=== PATIENT | female | born 1970 | race Two or more races ===

== ENCOUNTER 2020-03-31 10:34 | Outpatient (REF) | payer BC, SELFPAY | END 2020-03-31 10:35 | disposition home or self-care (01) | LOC: HO.LAB 10:34 | PROVIDERS: Visit Provider Internal Medicine | DX: Z20.828 Contact with and (suspected) exposure to other viral communicable diseases (principal) | CPT/HCPCS: C9803; U0003 ==

== ENCOUNTER → 2020-05-18 11:34 | Outpatient (BNVA) | payer BC, SELFPAY | PROVIDERS: PCP Physician Assistant; Visit Provider Advanced Practice Midwife ==

== ENCOUNTER 2020-06-06 15:18 | Outpatient (REF) | payer BC, SELFPAY ==
--- NOTE | ~2020-06-06 | US_ITS ---
EXAMINATION: PELVIC ULTRASOUND CLINICAL INFORMATION: Bulky uterus COMPARISON: Previous pelvic ultrasound exam October 2018 TECHNIQUE: Transabdominal and transvaginal pelvic ultrasound was performed. Transvaginal exam was performed for better visualization of the uterus and ovaries. FINDINGS: The uterus is anteverted. The uterus is enlarged and measures 12 x 5 x 7 cm. Uterine echotexture is heterogeneous. There are 2 hypoechoic lesions questionable for fibroids measuring 3.5 x 3.2 x 3.8 cm in the left anterior uterine fundus and 1.4 x 1.3 x 1.4 cm in the posterior lower uterine segment. These do not appear appreciably changed from previous exam. The endometrium is heterogeneous-appearing and difficult to define. Endometrial thickness measures 1.2 cm. There are nabothian cysts in the cervix. The right ovary is normal-appearing and measures 2.2 x 1.6 x 2.5 cm. The left ovary is slightly enlarged and measures 4.3 x 2.1 x 3.4 cm. There are 2 adjacent complex cysts with daughter cysts measuring 2.7 x 1.6 x 1.7 cm and 2.2 x 1.5 x 1.6 cm. There is no fluid in the pelvis. US/US pelvic complete IMPRESSION: Enlarged heterogeneous appearing uterus. The endometrium is heterogeneous and difficult to define. 2 focal uterine lesions, largest measuring 3 x 4 cm. Fibroids and possible adenomyosis should be considered. Slightly enlarged left ovary containing 2 complex cysts.
--- NOTE | ~2020-06-06 | US_ITS ---
EXAMINATION: PELVIC ULTRASOUND CLINICAL INFORMATION: Bulky uterus COMPARISON: Previous pelvic ultrasound exam October 2018 TECHNIQUE: Transabdominal and transvaginal pelvic ultrasound was performed. Transvaginal exam was performed for better visualization of the uterus and ovaries. FINDINGS: The uterus is anteverted. The uterus is enlarged and measures 12 x 5 x 7 cm. Uterine echotexture is heterogeneous. There are 2 hypoechoic lesions questionable for fibroids measuring 3.5 x 3.2 x 3.8 cm in the left anterior uterine fundus and 1.4 x 1.3 x 1.4 cm in the posterior lower uterine segment. These do not appear appreciably changed from previous exam. The endometrium is heterogeneous-appearing and difficult to define. Endometrial thickness measures 1.2 cm. There are nabothian cysts in the cervix. The right ovary is normal-appearing and measures 2.2 x 1.6 x 2.5 cm. The left ovary is slightly enlarged and measures 4.3 x 2.1 x 3.4 cm. There are 2 adjacent complex cysts with daughter cysts measuring 2.7 x 1.6 x 1.7 cm and 2.2 x 1.5 x 1.6 cm. There is no fluid in the pelvis. US/US transvaginal IMPRESSION: Enlarged heterogeneous appearing uterus. The endometrium is heterogeneous and difficult to define. 2 focal uterine lesions, largest measuring 3 x 4 cm. Fibroids and possible adenomyosis should be considered. Slightly enlarged left ovary containing 2 complex cysts.
== END 2020-06-06 15:19 | disposition home or self-care (01) ==
LOC: HO.US 15:18
PROVIDERS: PCP Physician Assistant; Visit Provider Advanced Practice Midwife
DX: N85.2 Hypertrophy of uterus (principal); N95.1 Menopausal and female climacteric states
CPT/HCPCS: 76830; 76856

== ENCOUNTER 2020-07-30 10:46 | Outpatient (REF) | payer BC, SELFPAY ==
--- NOTE | ~2020-07-30 | US_ITS ---
EXAMINATION: US PELVIS COMPLETE US PELVIS TRANSVAGINAL CLINICAL INFORMATION: Ovarian cyst. LMP 07/21/2020. COMPARISON: Multiple priors, most recent pelvic ultrasound dated 06/06/2020. TECHNIQUE: Transabdominal and transvaginal imaging was performed. FINDINGS: The uterus measures 9.8 x 4.6 x 7.1 cm for a volume of 167.4 mL. There are multiple uterine fibroids measuring up to 3.2 cm within the right fundus (previously 3.8 cm), 1.9 cm within the fundus (previously not seen), 1.5 cm within the posterior fundus (previously not seen), and 1.5 cm within the posterior uterine body (see previously 1.4 cm). A regular homogeneous endometrium is identified measuring 0.6 cm. There is trace fluid within the endometrial cavity and cervix. There are nabothian cysts. Both ovaries are of normal size and echogenicity. The right measures 2.6 x 1.7 x 1.7 cm for a volume of 3.9 mL. The left measures 3.6 x 1.7 x 2.6 cm for a volume of 8.5 mL. In the region of the previously seen complex left ovarian cyst, there is now a simple cyst versus dominant follicle measuring 1.6 cm. No new ovarian parenchymal lesion. There is no pelvic free fluid. US/US pelvic complete IMPRESSION: 1. Fibroid uterus. 2. Previously seen complex left adnexal cysts are no longer identified. There is currently a left adnexal dominant follicle versus simple cyst measuring 1.6 cm. No routine follow-up imaging recommended. 3. Unremarkable right ovary.
--- NOTE | ~2020-07-30 | US_ITS ---
EXAMINATION: US PELVIS COMPLETE US PELVIS TRANSVAGINAL CLINICAL INFORMATION: Ovarian cyst. LMP 07/21/2020. COMPARISON: Multiple priors, most recent pelvic ultrasound dated 06/06/2020. TECHNIQUE: Transabdominal and transvaginal imaging was performed. FINDINGS: The uterus measures 9.8 x 4.6 x 7.1 cm for a volume of 167.4 mL. There are multiple uterine fibroids measuring up to 3.2 cm within the right fundus (previously 3.8 cm), 1.9 cm within the fundus (previously not seen), 1.5 cm within the posterior fundus (previously not seen), and 1.5 cm within the posterior uterine body (see previously 1.4 cm). A regular homogeneous endometrium is identified measuring 0.6 cm. There is trace fluid within the endometrial cavity and cervix. There are nabothian cysts. Both ovaries are of normal size and echogenicity. The right measures 2.6 x 1.7 x 1.7 cm for a volume of 3.9 mL. The left measures 3.6 x 1.7 x 2.6 cm for a volume of 8.5 mL. In the region of the previously seen complex left ovarian cyst, there is now a simple cyst versus dominant follicle measuring 1.6 cm. No new ovarian parenchymal lesion. There is no pelvic free fluid. US/US transvaginal IMPRESSION: 1. Fibroid uterus. 2. Previously seen complex left adnexal cysts are no longer identified. There is currently a left adnexal dominant follicle versus simple cyst measuring 1.6 cm. No routine follow-up imaging recommended. 3. Unremarkable right ovary.
== END 2020-07-30 10:47 | disposition home or self-care (01) ==
LOC: HO.US 10:46
PROVIDERS: Visit Provider Obstetrics & Gynecology
DX: N83.292 Other ovarian cyst, left side (principal)
CPT/HCPCS: 76830; 76856

== ENCOUNTER → 2020-08-07 11:19 | Outpatient (BNVA) | payer BC, SELFPAY | PROVIDERS: PCP Physician Assistant; Visit Provider Obstetrics & Gynecology ==

== ENCOUNTER 2020-08-14 12:54 | Outpatient (REF) | payer BC, SELFPAY ==
--- NOTE | ~2020-08-14 | MM_ITS ---
EXAMINATION: MM DIAGNOSTIC DIGITAL BREAST TOMOSYNTHESIS, BILATERAL US DIAGNOSTIC ULTRASOUND BREAST, RIGHT CLINICAL INFORMATION: Recent palpable nodule medial right breast, doesn't feel today. No pain or discharge. No known family history breast cancer. The lifetime risk of breast cancer based on the Tyrer-Cuzick Model is 7%. COMPARISON: Mammography: 07/14/2018, 02/25/2017 TECHNIQUE: Digital breast tomosynthesis is performed in both the craniocaudal and mediolateral oblique views along with computer-aided detection (CAD). Synthesized 2D images are generated from the tomosynthesis. Additional exaggerated right CC view is obtained. Ultrasound right breast is targeted to the medial and lower quadrant. Grayscale imaging and color Doppler are performed without and with harmonics. FINDINGS: The breasts are heterogeneously dense, which may obscure small masses (ACR BI-RADS breast composition Category c). Parenchymal pattern is similar to prior studies. There is no interval mass or architectural abnormality or developing density. There is no skin thickening or coarsening of the Abdiel's ligaments. The axilla are unremarkable. No abnormal calcifications. No significant changes. Ultrasound demonstrates an oval cyst 5:00 position 3 cm from nipple measuring 0.6 x 0.3 cm with long axis parallel to the skin. There are some fine internal avascular septation. No associated color flow. There is increased through-transmission of sound. There is no solid mass or architectural abnormality or focal duct ectasia. Patient does not palpate the finding today. It is uncertain if the cyst is correlate for recent symptoms. Results are discussed with the patient at time of visit. Patient does not palpate abnormality today. If finding is recurrent, repeat targeted imaging may be considered. MM/MM tomosynthesis diagnostic BI IMPRESSION: 1. No mammographic evidence of malignancy or significant change from prior studies. 2. Benign complicated cyst 5:00 position 0.6 x 0.3 cm. ASSESSMENT: BI-RADS 2: Benign RECOMMENDATION: Routine annual mammography screening. This patient's information was entered into a reminder system with a target due date for their next mammogram.
== END 2020-08-14 12:55 | disposition home or self-care (01) ==
LOC: HO.MAMMO 12:54
PROVIDERS: PCP Physician Assistant; Visit Provider Physician Assistant
DX: N63.14 Unspecified lump in the right breast, lower inner quadrant (principal)
CPT/HCPCS: 76642; 77062; 77066

== ENCOUNTER 2021-03-22 07:21 | Outpatient (REF) | payer BC, SELFPAY ==
[2021-03-22 08:09] LABS: Hematocrit 35.1 % (37.0-47.0); Hemoglobin 11.7 g/dl (12.0-16.0); Mean Corpuscular HGB Conc 33.3 g/dl (31.0-35.0); Mean Corpuscular Hemoglobin 30.8 pg (27.0-33.0); Mean Corpuscular Volume 92.4 fL (80.0-98.0); Mean Platelet Volume 10.7 fL (9.4-12.3); Platelet Count 242 X10*3/uL (160-400); White Blood Count 3.4 X10*3/uL (4.8-10.8)
[2021-03-22 08:20] LABS: Estimated Average Glucose 88 mg/dL; Hemoglobin A1c % 4.7 %
[2021-03-22 08:36] LABS: Alanine Aminotransferase 10 U/L (0-31); Alkaline Phosphatase 68 U/L (39-117); Anion Gap 10 (12-20); Aspartate Amino Transferase 16 U/L (5-31); Blood Urea Nitrogen 8 mg/dL (9-16); Calcium 8.9 mg/dL (8.4-10.2); Carbon Dioxide 26 mmol/L (22-29); Chloride 107 mmol/L (96-108); Cholesterol 182 mg/dL; Estimated Glomerular Filt Rate > 60; Glucose Fasting 94 mg/dL (60-99); HDL Cholesterol 79 mg/dL; LDL Cholesterol Calculated 96 mg/dl; Potassium 4.2 mmol/L (3.3-5.1); Sodium 139 mmol/L (135-145); Total Protein 6.7 g/dL (6.5-8.0); Triglycerides 35 mg/dL
== END 2021-03-22 07:22 | disposition home or self-care (01) ==
LOC: HO.LAB 07:21
PROVIDERS: PCP Physician Assistant; Visit Provider Physician Assistant
DX: Z13.29 Encounter for screening for other suspected endocrine disorder (principal); Z13.220 Encounter for screening for lipoid disorders; I10 Essential (primary) hypertension
CPT/HCPCS: 36415; 80053; 80061; 83036; 84443; 85027

== ENCOUNTER 2021-05-21 12:59 | Outpatient (REF) | payer BC, SELFPAY ==
[2021-05-24 03:36] LABS: HPV mRNA E6/E7 rflx Not Detected (Not Detected)
== END 2021-05-21 13:00 | disposition home or self-care (01) ==
LOC: HO.LAB 12:59
PROVIDERS: Visit Provider Obstetrics & Gynecology
DX: Z01.419 Encounter for gynecological examination (general) (routine) without abnormal findings (principal)
CPT/HCPCS: 87624; 88142

== ENCOUNTER 2021-06-11 14:17 | Outpatient (REF) | payer BC, SELFPAY ==
--- NOTE | ~2021-06-11 | US_ITS ---
EXAMINATION: US PELVIS CLINICAL INFORMATION: Hypertrophy of the uterus. COMPARISON: Ultrasound pelvis 08/09/2020 TECHNIQUE: Ultrasound of the pelvis is performed using both transabdominal and transvaginal transducers along with Doppler. Transvaginal imaging is performed due to inadequate visualization transabdominally. FINDINGS: Uterus: The uterus is anteverted, anteflexed measuring 9.6 cm in length, 4.8 cm in AP and 7.8 cm in transverse dimension. The double wall endometrial thickness is 0.9 cm. The uterus is smooth in contour and has normal myometrial echogenicity. There are two hypoechoic lesions. 1. A small hypoechoic lesion in the left body of uterus measuring 1.3 x 1.3 x 1.2 cm. Previously it measured 1.5 x 1.3 x 1.3 cm. 2. Lesion in the right fundus measures 3.0 x 3.6 x 3.5 cm. Previously it measured 2.6 x 2.6 x 3.2 cm. There is a small nabothian cysts seen. Adnexa: Both ovaries are visualized. There is normal color flow to the adnexa. There is no ovarian torsion. There is no pelvic ascites or fluid collection. Right ovary measures 3.1 x 1.8 x 2.1 cm and volume 6.1 mL. There is are anechoic cysts measuring 1.3 x 1.0 x 1.1 cm and 1.6 1.1 x 0.9 cm. Previously right ovary measured 2.6 x 1.7 x 1.7 cm. Left ovary measures 2.7 x 2.0 x 2.4 cm and volume 6.8 mL. There is a small dominant follicle measuring 1.9 x 1.5 x 1.6 cm. Previously left ovary measured 3.6 x 1.7 x 2.6 cm. There is no free fluid in the cul-de-sac. US/US pelvic and transvaginal IMPRESSION: 1. There are two uterine fibroids visualized which were seen on the previous exam 08/09/2020. The other two fibroids seen on previous exam are not visualized on the present exam. 2. Small nabothian cysts in the cervix. 3. Bilateral ovarian cysts.
== END 2021-06-11 14:18 | disposition home or self-care (01) ==
LOC: HO.US 14:17
PROVIDERS: Visit Provider Obstetrics & Gynecology
DX: N85.2 Hypertrophy of uterus (principal)
CPT/HCPCS: 76830; 76856

== ENCOUNTER → 2021-06-25 12:45 | Outpatient (BNVA) | payer BC, SELFPAY | PROVIDERS: Visit Provider Obstetrics & Gynecology ==

== ENCOUNTER 2021-07-16 12:53 | Outpatient (REF) | payer BC, SELFPAY | END 2021-07-16 12:54 | disposition home or self-care (01) | LOC: HO.LAB 12:53 | PROVIDERS: Visit Provider Obstetrics & Gynecology | DX: N93.9 Abnormal uterine and vaginal bleeding, unspecified (principal) | CPT/HCPCS: 58100; 88305 ==

== ENCOUNTER → 2021-07-29 14:17 | Outpatient (BNVA) | payer BC, SELFPAY | PROVIDERS: Visit Provider Obstetrics & Gynecology | DX: Z13.89 Encounter for screening for other disorder (principal) ==

== ENCOUNTER 2021-08-16 09:19 | Outpatient (REF) | payer BC, SELFPAY ==
--- NOTE | ~2021-08-16 | MM_ITS ---
EXAMINATION: MM SCREENING DIGITAL BREAST TOMOSYNTHESIS, BILATERAL CLINICAL INFORMATION: Screening. Asymptomatic. The lifetime risk of breast cancer based on the Tyrer-Cuzick Model is 9%. COMPARISON: Mammography: 08/14/2020, 07/14/2018, 02/25/2017; targeted right breast ultrasound 08/14/2020. TECHNIQUE: Digital breast tomosynthesis is performed in both the craniocaudal and mediolateral oblique views along with computer-aided detection (CAD). Synthesized 2D images are generated from the tomosynthesis. FINDINGS: The breasts are heterogeneously dense, which may obscure small masses (ACR BI-RADS breast composition Category c). There are no significant masses, abnormal calcifications, or other abnormalities. Parenchymal pattern is similar to prior studies. No developing density or architectural abnormality. MM/MM tomosynthesis screening BI IMPRESSION: No mammographic evidence of malignancy. ASSESSMENT: BI-RADS 1: Negative RECOMMENDATION: Routine annual mammography screening. This patient's information was entered into a reminder system with a target due date for their next mammogram.
== END 2021-08-16 09:20 | disposition home or self-care (01) ==
LOC: HO.MAMMO 09:19
PROVIDERS: Visit Provider Physician Assistant
DX: Z12.31 Encounter for screening mammogram for malignant neoplasm of breast (principal)
CPT/HCPCS: 77063; 77067

== ENCOUNTER → 2021-08-19 14:59 | Outpatient (BNVA) | payer BC, SELFPAY | PROVIDERS: Visit Provider Obstetrics & Gynecology | DX: Z13.89 Encounter for screening for other disorder (principal) ==

== ENCOUNTER 2021-08-23 06:31 | Day surgery (SDC) | payer BC, SELFPAY ==
[2021-08-19 10:32] VITALS: BMI 24.1
--- NOTE | 2021-08-22 08:59 | P.CONAN_ITS ---
Documented by User: Julia Rondon NP 08/22/21 09:00 HPI - Anesthesia Eval Consult details Narrative: 51yo F for D&C Hysteroscopy,possible polypectomy/myomectomy PMFSH Active Problems Active Problems: All Active Problems (Updated 07/16/21 @ 13:31 by aNbeel Gomez MD) Abnormal uterine bleeding (AUB) (Acute) Myoma (Acute) Well woman exam (Acute) Anemia (Acute) Annual physical exam (Acute) BIRGIT (generalized anxiety disorder) (Acute) MDD (major depressive disorder), recurrent episode, moderate (Acute) Screening for hypothyroidism (Acute) Screening for hypercholesterolemia (Acute) Screening for diabetes mellitus (DM) (Acute) Breast mass, right (Acute) Screening breast examination (Acute) Perimenopause (Acute) Bulky or enlarged uterus (Acute) Well woman exam with routine gynecological exam (Acute) Past Medical History Medical History Anxiety Depressed Excessive bleeding in the premenopausal period Family History Family History Father Hypertension Mother Hypertension Surgical History Surgical History History of endometrial ablation Hx of tubal ligation Social History Social History Housing: House Alcohol intake: never Patient Tobacco Use Status: Never used Tobacco Tobacco use type: Cigarette e-Cigarette/Vaping Use: Never Used Second Hand Smoke Exposure: No Use of substances other than those prescribed or required for medical reasons: No Are you DNR?: No Advance Directives: No Advance Directives Information Provided: Yes Current occupational status: unemployed Gender identity: Female Meds Allergies Allergy/AdvReac Type Severity Reaction Status Date / Time No Known Allergies Allergy Verified 08/23/21 06:46 [No Known Allergies*] Home Medications Medication Instructions Recorded Confirmed Last Taken Type cholecalciferol (vitamin D3) 25 25 mcg PO DAILY 05/18/20 07/02/21 Unknown History mcg (1,000 unit) capsule Exam Exam Date and Time: August 22, 2021 0859 Height,Weight and Vital Signs: Height 5 ft 5 in Weight 65.771 kg Pertinent Lab Results Pertinent Lab Results: Laboratory Tests 03/22/21 03/22/21 07:30 07:30 WBC 3.4 L Hgb 11.7 L Hct 35.1 L Plt Count 242 Sodium 139 Potassium 4.2 Chloride 107 Carbon Dioxide 26 BUN 8 L Creatinine 0.67 Assessment and Plan Assessment Anesthesia Assessment: Chart Reviewed Documented by User: Domo Simms MD 08/23/21 07:27 [facility] Past Medical History Medical History Anxiety Depressed Excessive bleeding in the premenopausal period Family History Family History Father Hypertension Mother Hypertension Family history of problems with anesthesia: No Surgical History Surgical History History of endometrial ablation Hx of tubal ligation History of Problems with Anesthesia: No Social History Social History Housing: House Alcohol intake: never Patient Tobacco Use Status: Never used Tobacco Tobacco use type: Cigarette e-Cigarette/Vaping Use: Never Used Second Hand Smoke Exposure: No Use of substances other than those prescribed or required for medical reasons: No Are you DNR?: No Advance Directives: No Advance Directives Information Provided: Yes Current occupational status: unemployed Gender identity: Female Meds Allergies Allergy/AdvReac Type Severity Reaction Status Date / Time No Known Allergies Allergy Verified 08/23/21 06:46 [No Known Allergies*] Home Medications Medication Instructions Recorded Confirmed Last Taken Type cholecalciferol (vitamin D3) 25 25 mcg PO DAILY 05/18/20 07/02/21 Unknown History mcg (1,000 unit) capsule Exam Airway Mallampati Class: I TM Dist: >3cm Neck ROM: Full Assessment and Plan Assessment Anesthesia Assessment: Anesthesia Plan Discussed Final Anesthetic Review Family History of Problems with Anesthesia: No History of Problems with Anesthesia: No NPO: Yes ASA Class: II Final Preanesthetic Review: No Changes in Pt Med Stat, Meds/Allgs Chart Reviewed, Consent Obtained/Reviewed and Anes Risks/Benef Reviewed Procedure Risk: Low Anesthetic Plan Anesthetic Plan: GA Disposition: Standard PACU
[2021-08-23] VITALS (7 sets, daily range): BP systolic 110–134; BP diastolic 60–76; PULSE 55–69; RESP 14–16; TEMP 36.3–36.8; O2SAT 97–100; BMI 24.1
[2021-08-23 06:52] LABS: UPreg QC Valid YES; Urine Pregnancy NEGATIVE (NEGATIVE)
--- NOTE | 2021-08-23 07:37 | MHC.SHP ---
Pre-Procedural Eval Section A Date of Service: 08/23/21 Section B Chief Complaint: abnormal bleeding Allergies: Allergies Allergy/AdvReac Type Severity Reaction Status Date / Time No Known Allergies Allergy Verified 08/23/21 06:46 [No Known Allergies*] Plan I have reviewed the history and physical and performed a pertinent physical examination on my patient. No changes have occurred unless specified.
[2021-08-23] MEDS: Lactated Ringers 1,000 ML 100 ML IVCONT (07:55)
--- NOTE | 2021-08-23 08:55 | P.BOP_ITS ---
Brief Operative Note Date of Service: 08/23/21 Pre-op diagnosis: Abnormal uterine bleeding Post-op diagnosis: same (Normal endometrial cavity) Procedure: Hysteroscopy D&C, Polypectomy Surgeon: Nabeel Gomez MD Anesthesia: MAC Was an Peer Support Specialist used for this Procedure?: No Estimated blood loss (mL): 0 Pathology: other (Endometrial Scrapping. ) Condition: stable Disposition: PACU
--- NOTE | 2021-08-23 08:56 | P.OP_ITS ---
Operative Note Operative Note Date of Service: 08/23/21 Narrative: Preop Diagnosis: Abnormal uterine bleeding Operation: Diagnostic Hysteroscopy, Dilataion & Curettage Post Op Diagnosis: Normal endometrial cavity QBL: Minimal Anesthesia: MAC Surgeon: Nabeel Gomez MD Environmental Science Program Director: None Complication: None Pathology: Endometrial Scrapings Procedure: The patient was put in the dorsal lithotomy position, scrubbed, and draped in the usual manner. A sterile speculum was inserted in the patient's vagina. The anterior lip of the cervix was grasped with a single tooth tenaculum. The cervix was dilated up to 5 mm, then the scope was inserted in the patient's uterus. Inspection revealed Normal endometrial cavity. The Myosure Reach device was used; sharp settings was carried on, moderate amount of tissues retrieved. At the end of the procedure, all instruments were taken out of the patient uterine and vaginal cavity. The single tooth tenaculum was removed and homeostasis was assured using pressure,. The patient tolerated the procedure well and was transferred to the PACU in a stable condition.
[2021-08-23] MEDS: oxyCODONE HCl Immed Release 5 MG TABLET PO (09:40)
[2021-08-23] MEDS: Acetaminophen 325 MG TABLET 650 MG PO (09:40)
== END 2021-08-23 10:13 | disposition home or self-care (01) ==
PROVIDERS: Visit Provider Obstetrics & Gynecology
PROC: 0UDB8ZZ Extraction of Endometrium, Via Natural or Artificial Opening Endoscopic (ICD-10-PCS; CPT 58558; principal; 2021-08-23 08:30)
DX: N93.9 Abnormal uterine and vaginal bleeding, unspecified (principal); F41.8 Other specified anxiety disorders; Z98.51 Tubal ligation status; Z79.899 Other long term (current) drug therapy
CPT/HCPCS: 58558; 81025; 88305; J1100; J2250; J2405; J3010

== ENCOUNTER → 2021-09-05 15:20 | Outpatient (BNVA) | payer BC, SELFPAY | PROVIDERS: Visit Provider Obstetrics & Gynecology | DX: N93.9 Abnormal uterine and vaginal bleeding, unspecified (principal) ==

== ENCOUNTER 2021-11-07 07:31 | Outpatient (REF) | payer OTHER, SELFPAY ==
[2021-11-07 08:26] LABS: Hematocrit 35.9 % (37.0-47.0); Hemoglobin 11.5 g/dl (12.0-16.0); Mean Corpuscular Hemoglobin 27.8 pg (27.0-33.0); Mean Corpuscular Volume 86.7 fL (80.0-98.0); Mean Platelet Volume 10.1 fL (9.4-12.3); Platelet Count 280 X10*3/uL (160-400); Red Blood Count 4.14 X10*6/uL (4.20-5.50); Red Cell Distribution Width 16.2 % (11.0-16.0); White Blood Count 3.5 X10*3/uL (4.8-10.8)
[2021-11-07 08:59] LABS: Alanine Aminotransferase 20 U/L (0-31); Albumin Level 4.2 g/dL (3.5-5.0); Alkaline Phosphatase 80 U/L (39-117); Anion Gap 12 (12-20); Aspartate Amino Transferase 24 U/L (5-31); Bilirubin Total 1.3 mg/dL (0.0-1.0); Blood Urea Nitrogen 12 mg/dL (9-16); Calcium 9.4 mg/dL (8.4-10.2); Carbon Dioxide 26 mmol/L (22-29); Chloride 105 mmol/L (96-108); Estimated Glomerular Filt Rate > 60; Glucose Random 84 mg/dL (60-115); Potassium 4.8 mmol/L (3.3-5.1); Sodium 138 mmol/L (135-145)
[2021-11-07 09:06] LABS: TSH reflex Free T4 0.81 uIU/mL (0.32-4.0); Vitamin D 25-OH Total 15.7 ng/mL (>30)
[2021-11-07 09:18] LABS: Folate 15.8 ng/mL (> or = 4.0); Vitamin B12 388 pg/mL (200-900)
== END 2021-11-07 07:32 | disposition home or self-care (01) ==
LOC: HO.LAB 07:31
PROVIDERS: PCP Physician Assistant; Visit Provider Nurse Practitioner Family
DX: R42 Dizziness and giddiness (principal); D50.0 Iron deficiency anemia secondary to blood loss (chronic)
CPT/HCPCS: 36415; 80053; 82306; 82607; 82746; 84443; 85027

== ENCOUNTER 2021-11-22 07:43 | Outpatient (REF) | payer OTHER, SELFPAY ==
[2021-11-22 08:53] LABS: Iron 59 mcg/dL (30-160); Percent Iron Saturation 15 % (15-50); Total Iron Binding Capacity 391 mcg/dL (228-428); Unsaturated Iron Binding 332 ug/dL
== END 2021-11-22 07:44 | disposition home or self-care (01) ==
LOC: HO.LAB 07:43
PROVIDERS: PCP Physician Assistant; Visit Provider Nurse Practitioner Family
DX: D50.0 Iron deficiency anemia secondary to blood loss (chronic) (principal)
CPT/HCPCS: 36415; 83540

== ENCOUNTER 2022-08-22 08:17 | Outpatient (REF) | payer OTHER, SELFPAY ==
--- NOTE | ~2022-08-22 | MM_ITS ---
EXAMINATION: MM SCREENING DIGITAL BREAST TOMOSYNTHESIS, BILATERAL CLINICAL INFORMATION: Screening. Asymptomatic. The lifetime risk of breast cancer based on the Tyrer-Cuzick Model is 9%. COMPARISON: Mammography: 08/16/2021, 08/14/2020, 07/14/2018; right ultrasound 08/14/2020. TECHNIQUE: Digital breast tomosynthesis is performed in both the craniocaudal and mediolateral oblique views along with computer-aided detection (CAD). Synthesized 2D images are generated from the tomosynthesis. FINDINGS: The breasts are heterogeneously dense, which may obscure small masses (ACR BI-RADS breast composition Category c). There are no significant masses, abnormal calcifications, or other abnormalities. No architectural abnormality or developing density or significant change from prior studies. Again, there are scattered bilateral benign round and coarse and dermal calcifications. The axilla are unremarkable. MM/MM tomosynthesis screening BI IMPRESSION: No mammographic evidence of malignancy. ASSESSMENT: BI-RADS 1: Negative RECOMMENDATION: Routine annual mammography screening. This patient's information was entered into a reminder system with a target due date for their next mammogram.
== END 2022-08-22 08:18 | disposition home or self-care (01) ==
LOC: HO.MAMMO 08:17
PROVIDERS: PCP Physician Assistant; Visit Provider Physician Assistant
DX: Z12.31 Encounter for screening mammogram for malignant neoplasm of breast (principal)
CPT/HCPCS: 77063; 77067

== ENCOUNTER 2022-08-29 07:11 | Outpatient (REF) | payer OTHER, SELFPAY ==
[2022-08-29 07:22] LABS: MANUAL DIFF FLAG NO
[2022-08-29 07:56] LABS: Basophils Absolute Auto 0.1 X10*3/uL (0.0-0.2); Basophils Percent Auto 1.4 % (0-2); Eosinophils Absolute Auto 0.2 X10*3/uL (0.0-0.4); Eosinophils Percent Auto 4.6 % (0-4); Hematocrit 37.7 % (37.0-47.0); Hemoglobin 12.3 g/dl (12.0-16.0); Imm Gran Abs Auto 0.01 X10*3/uL (0.00-0.03); Imm Gran Pct Auto 0.3 % (0.0-0.4); Lymphocytes Absolute Auto 1.3 X10*3/uL (1.2-4.9); Lymphocytes Percent Auto 37.1 % (20-40); Mean Corpuscular HGB Conc 32.6 g/dl (31.0-35.0); Mean Corpuscular Hemoglobin 28.9 pg (27.0-33.0); Mean Corpuscular Volume 88.7 fL (80.0-98.0); Monocytes Absolute Auto 0.3 X10*3/uL (0.1-1.2); Monocytes Percent Auto 9.9 % (2-11); Neutrophils Absolute Auto 1.6 x10*3/uL (2.0-8.3); Neutrophils Percent Auto 46.7 % (45-73); Platelet Count 273 X10*3/uL (160-400); Red Blood Count 4.25 X10*6/uL (4.20-5.50); Red Cell Distribution Width 14.6 % (11.0-16.0); White Blood Count 3.5 X10*3/uL (4.8-10.8)
[2022-08-29 08:28] LABS: Alanine Aminotransferase 17 U/L (0-31); Albumin Level 3.9 g/dL (3.5-5.0); Alkaline Phosphatase 75 U/L (39-117); Anion Gap 11 (12-20); Aspartate Amino Transferase 21 U/L (5-31); Bilirubin Total 0.6 mg/dL (0.0-1.0); Blood Urea Nitrogen 9 mg/dL (9-16); Calcium 9.4 mg/dL (8.4-10.2); Carbon Dioxide 27 mmol/L (22-29); Chloride 111 mmol/L (96-108); Cholesterol 199 mg/dL; Estimated Glomerular Filt Rate > 60; Glucose Fasting 89 mg/dL (60-99); HDL Cholesterol 90 mg/dL; LDL Cholesterol Calculated 104 mg/dl; Potassium 5.3 mmol/L (3.3-5.1); Sodium 144 mmol/L (135-145); Total Protein 6.5 g/dL (6.5-8.0); Triglycerides 28 mg/dL
[2022-08-29 09:00] LABS: Folate 14.1 ng/mL (> or = 4.0); TSH reflex Free T4 0.96 uIU/mL (0.32-4.0); Vitamin B12 405 pg/mL (200-900); Vitamin D 25-OH Total 59.6 ng/mL (>30)
[2022-08-29 09:25] LABS: Appearance Urine Clear; Color Urine Yellow; Glucose Urine UA Negative (Negative); Leukocyte Esterase Urine Negative (Negative); Nitrite Urine Negative (Negative); Specific Gravity - Urine 1.015 (1.005-1.025); Urine Blood Negative (Negative); Urine Ketones Negative (Negative); Urine Protein Negative (Neg-Trace)
== END 2022-08-29 07:12 | disposition home or self-care (01) ==
LOC: HO.LAB 07:11
PROVIDERS: PCP Physician Assistant; Visit Provider Nurse Practitioner Family
DX: F33.1 Major depressive disorder, recurrent, moderate (principal); R35.0 Frequency of micturition; E55.9 Vitamin D deficiency, unspecified; Z13.29 Encounter for screening for other suspected endocrine disorder; Z13.1 Encounter for screening for diabetes mellitus; Z13.220 Encounter for screening for lipoid disorders; R42 Dizziness and giddiness; D64.9 Anemia, unspecified; F41.9 Anxiety disorder, unspecified
CPT/HCPCS: 36415; 80053; 80061; 81003; 82306; 82607; 82746; 84443; 85025

== ENCOUNTER 2022-09-12 08:28 | Outpatient (REF) | payer OTHER, SELFPAY ==
[2022-09-12 09:41] LABS: Anion Gap 11 (12-20); Blood Urea Nitrogen 14 mg/dL (9-16); Calcium 9.4 mg/dL (8.4-10.2); Carbon Dioxide 28 mmol/L (22-29); Chloride 110 mmol/L (96-108); Estimated Glomerular Filt Rate > 60; Glucose Random 87 mg/dL (60-115); Potassium 4.7 mmol/L (3.3-5.1); Sodium 144 mmol/L (135-145)
== END 2022-09-12 08:29 | disposition home or self-care (01) ==
LOC: HO.LAB 08:28
PROVIDERS: PCP Physician Assistant; Visit Provider Nurse Practitioner Family
DX: E87.5 Hyperkalemia (principal)
CPT/HCPCS: 36415; 80048

== ENCOUNTER 2022-10-17 11:00 | Outpatient (RCR) | payer OTHER, SELFPAY ==
--- NOTE | 2022-09-12 11:02 | MHC.OT.EP ---
[address] [phone] Occupational Therapy Plan of Care Patient Name: Zoë Russo Date of Evaluation: 09/12/22 Diagnosis: B/L hand pain Pain Location: Pain free at rest 6/10 in B/L CMC, L > R with daily use Pain Score: 6 Pain Scale Used: Numeric (0 - 10) Aggravating Factors: Gripping, use, pressure to base of thumb Alleviating Factors: None used Assessment: 52 yo female was seen by PCP for her annual exam and reported onset of B/L hand pain, worsening over the past year. She has been referred to OT for further assessment and management. On assessment today, she report low resting pain, but increases w/ daily use, left thumb base moreso than right and pt w/ positive grind test for CMC arthritis. She also reports nighttime tingling in left hand and may have early carpal tunnel syndrome. she will benefit from cont'd therapy services for splinting, joint protection and progression of home program w/ ROM and functional strengthening. Frequency and Duration: The patient will be seen 2x/wk for 3 weeks Short Term Goals: Ind w/ orthosis wear Pt to demo thumb-index rounded opposition w/ ease Pt to demo good joint protection w/ light opposition/pinching task Ind w/ heat/cold modalities for comfort as appropriate Quantometer Operator Goals: Left gross grasp >25lb Ind w/ self CMC mobilizations Ind w/ STM for adductor and webspace Pt to report <3/10 pain in hands w/ moderate daily tasks Treatment Plan: Therapeutic Exercise Therapeutic Activity Home Exercise Program Splinting Patient Education Edema Control ADL Training Ultrasound Paraffin Fluidotherapy MHP Cold Packs Joint Mobilization Soft Tissue Mobilization Kinesiotaping Electronically Signed By: Abby Hughes OTR/L CHT Please Sign and return to therapist. Thank you once again for your referral.
--- NOTE | 2022-11-18 11:34 | MHC.OT.DC ---
[address] [phone] F: [phone] Occupational Therapy Discharge Note Patient Name: Zoë Russo Provider: REJI Ortiz Diagnosis: B/L hand pain Date of Evaluation: 09/12/22 Date of Discharge: 11/18/22 Treatments to Date: 4 Cancellations to Date: 1 No Shows to Date: 1 Discharge Status: Visit Non-compliance Discharge Summary: Zoë was referred to OT w/ B/L hand pain, consistent w/ CMC arthritis and mild carpal tunnel syndrome. She was seen for brief period of time, educated on home exercises and joint protection, but has missed two appointments and not been seen in over a month. We will discharge from services at this time. Electronically Signed By: Abby Hughes OTR/L CHT Please Sign and return to therapist, thank you for your referral.
== END 2022-11-18 11:34 | disposition home or self-care (01) ==
LOC: HO.OT 11:00
PROVIDERS: PCP Physician Assistant; Visit Provider Nurse Practitioner Family
DX: M79.641 Pain in right hand (principal); M79.642 Pain in left hand
CPT/HCPCS: 29130; 97110; 97165; 97760

== ENCOUNTER → 2022-10-22 08:59 | Outpatient (BNVA) | payer OTHER, SELFPAY | PROVIDERS: PCP Physician Assistant; Visit Provider Obstetrics & Gynecology ==

== ENCOUNTER 2023-08-24 07:49 | Outpatient (AMB) | payer OTHER, SELFPAY ==
--- NOTE | 2023-08-24 08:15 | MHC.PC.OV ---
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: Patient has dentist HPI pe HPI Details Patient is a 53-year-old female here today for routine annual physical. Patient has a past medical history significant for generalized anxiety disorder, major depressive disorder. Concern: She has gained 14 lb since last office visit and reports low energy. She is wondering if it is due to her hormones secondary to menopause. Has not had a menstrual period in over 1 year. She does report eating fairly well though has a lot of carbs. Generalized anxiety disorder: Continues with the use of clonazepam on a p.r.n. basis, also using fluoxetine 40 mg. She reports her anxiety and depression have been much better and is interested decreasing her dose of SSRI therapy.. 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 1. Little interest or pleasure in doing things: several days 2. Feeling down, depressed, or hopeless: several days 3. Trouble falling or staying asleep, or sleeping too much: several days 4. Feeling tired or having little energy: several days 5. Poor appetite or overeating: several days 6. Feeling bad about yourself - or that you are a failure or have let yourself or your family down: several days 7. Trouble concentrating on things, such as reading the newspaper or watching television: several days 8. Moving or speaking so slowly that other people could have noticed. Or the opposite - being so fidgety or restless that you have been moving around a lot more than usual: several days 9. Thoughts that you would be better off or of hurting yourself in some way: not at all Total score: 8 Depression Screening Interpretation: Positive Depression Screening Follow-up: Existing condition Depression Screening Done: Yes 33480 - PHQ-9 Billing: Yes Source: Developed by Drs. Dima Pickens, Sammi Huang, Harley Wall and colleagues, with an educational fartun from [employer]. Thrive Questionnaire Date Thrive assessed: 08/24/23 I am a: Patient What is your living situation today?: I have a steady place to live Within the past 12 months, did the food you bought not last and you didn't have the money to get more?: Never true Within the past 12 months, did you worry whether your food would run out before you got money to buy more?: Never true Do you have trouble paying for medicines?: No Do you have trouble getting transportation to medical appointments?: No Do you have trouble paying your heating and electricity bill?: No Do you have trouble taking care of your child, family member or friend?: No Do you have trouble with day-to-day activities such as bathing, preparing meals, shopping, managing finances, etc.?: No Are you currently unemployed and looking for a job?: No Are you interested in more education?: No Please select the resources that you would like help with: None Currently or been in a relationship where the following occur: no concerns reported THRIVE Score: 0 AUDIT C Alcohol Use Questionnaire (AUDIT-C) 1. How often do you have a drink containing alcohol?: Never Total Score: 0 BIRGIT-7 AMB Questionnaire BIRGIT-7 Date BIRGIT - 7 assessed: 08/24/23 Feeling nervous, anxious, or on edge: 1 = Several days Not being able to stop or control worryin = Not at all Worrying too much about different things: 3 = Nearly every day Trouble relaxin = Several days Being so restless that it is hard to sit still: 0 = Not at all Becoming easily annoyed or irritable: 3 = Nearly every day Feeling afraid as if something awful might happen: 3 = Nearly every day Total BIRGIT-7 score (0-4 normal; 5-9 mild; 10-14 moderate; 15-21 severe): 11 Source: Developed by Drs. Dima Pickens, Sammi Huang, Harley Wall and colleagues, with an educational fartun from [employer]. BIRGIT-7 Assessment Billing BIRGIT-7 Assessment Tool: BIRGIT-7 Assessment 27207 Review of Systems Const Denies body aches, Denies chills, Denies excessive sweating, Denies fatigue, Denies fever(s) and Denies headache(s) Eyes Denies blurry vision ENT Denies dysphagia, Denies vertigo, Denies dizziness, Denies headache(s), Denies hearing loss and Denies tinnitus Card Denies chest pain, Denies chest pain with activity, Denies syncope, Denies irregular heart rhythm and Denies dyspnea Resp Denies chest congestion, Denies cough, Denies hemoptysis, Denies dyspnea and Denies wheezing GI Denies abdominal pain, Denies melena, Denies hematochezia, Denies coffee ground emesis, Denies dysphagia, Denies diarrhea, Denies nausea and Denies vomiting Denies urinary frequency, Denies dysuria, Denies urinary hesitancy and Denies urinary urgency Musc Denies arthralgias, Denies limited range of motion, Denies muscle cramps and Denies muscle weakness Skin/Breast Denies rash and Denies skin ulcer Neuro Denies Abnormal speech present, Denies confusion, Denies vertigo, Denies dizziness, Denies syncope, Denies headache(s), Denies memory loss and Denies seizure-like activity Psych Denies anxiety, Denies confusion, Denies depression, Denies memory loss, Denies panic attacks and Denies paranoia Endo Denies excessive sweating, Denies fatigue, Denies flushing, Denies polydipsia and Denies polyuria Aller/Immun Denies wheezing Physical exam (Primary Care) Vital Signs: Last Vital Signs BP 116/78 08/24/23 08:16 BMI result Body Mass Index 29.7 Tobacco/Smoking Status: Tobacco use Status Tobacco use date assessed 08/24/23 08/24/23 08:22 Patient Tobacco Use Status Never used Tobacco 08/24/23 08:30 Tobacco use type 05/08/23 09:53 e-Cigarette/Vaping Use Never Used 08/24/23 08:30 PHQ-9: PHQ-9 Score PHQ-9: Total score 8 08/24/23 08:27 Depression Screening Interpretation: Positive Depression Screening Follow-up: Existing condition Thrive Assessment: Date of Thrive Assessment Date Thrive assessed 08/24/23 08/24/23 08:22 Currently or been in a relationship where the following occur: no concerns reported Const General: cooperative, comfortable, no acute distress, alert and awake; No confusion Orientation/consciousness: oriented to person, oriented to place, patient oriented x3 and No confusion HENMT Head: Yes normocephalic Ears: external ears normal and TM's normal bilaterally Face and sinus: No sinus tenderness Mouth: Normal oral and palatal mucosa present and tongue normal Teeth and gingiva: dentition normal and gingiva normal Throat: Yes posterior oropharynx normal, Yes tonsils normal and Yes uvula midline Eyes Conjunctivae: conjunctivae normal Sclerae: sclerae normal Pupils: Equal, round and reactive pupils present EOM: EOMs intact bilaterally Direct Ophthalmoscopy: No no photophobia Neck Neck: Yes no lymphadenopathy, No tender and Yes no JVD Thyroid: Thyroid normal Carotids: no bruits Chest Chest palpation & inspection: no tenderness Resp Effort & Inspection: normal respiratory effort, no audible wheezes, not labored and no stridor Auscultation: no crackles, no rales, no rhonchi and no wheezes Cardio Jugular venous distension: no JVD Rate: regular rate, not bradycardic and not tachycardic Rhythm: regular rhythm Bruits: no carotid bruits Peripheral pulses: Peripheral pulses 2+ throughout GI Inspection: Yes normal to inspection, No abdominal wall ecchymosis and No visible herniation Palpation (GI): Soft to palpation, nontender, no guarding, not rigid and No hepatosplenomegaly present Auscultation: normoactive bowel sounds General: Yes no CVA tenderness Back/Spine/Pelvis Back: no CVA tenderness and No back tenderness Cervical Spine: cervical ROM normal Thoracic/Lumbar Spine: thoracic and lumbar spine normal to inspection, straight leg raise negative bilaterally, No thoraco-lumbar ROM limited and No lumbar spinal tenderness Skin Lesions: no lesions Rashes: no rashes Wounds: no wounds Neuro General: oriented to person, oriented to place, patient oriented x3, CN's II-XI intact bilaterally and No confusion Cranial nerves: Yes Equal, round and reactive pupils present and Yes Normal accommodation reflex present Cognition (Neuro): normal cognition Speech: No Abnormal speech present Gait exam (Neuro): Normal gait present Motor exam (neuro): 5/5 motor strength present throughout Extrem Right upper extremity: full ROM; no cyanosis Left upper extremity: full ROM; no cyanosis Right lower extremity: no edema Left lower extremity: no edema Psych Appearance: grossly normal Mental Status: mental status grossly normal Affect: normal affect Attitude: cooperative Thought process: Normal thought process present Assessment and Plan Assessment & Plan (1) Annual physical exam: Code(s): Z00.00 - Encounter for general adult medical examination without abnormal findings (2) BIRGIT (generalized anxiety disorder): Code(s): F41.1 - Generalized anxiety disorder Plan: Patient's BIRGIT-7 score positive for anxiety which has been existing condition for her. She reports her anxiety has been well controlled and is in a better place in her life. She is interested in reducing her dose of SSRI therapy. (3) MDD (major depressive disorder), recurrent episode, moderate: Code(s): F33.1 - Major depressive disorder, recurrent, moderate Plan: Patient's PHQ-9 score positive for depression which has been existing condition for her. Was seeing a mental health therapist. She again feels her depression is much better and would like to reduce her dose of SSRI therapy. (4) Menopause: Code(s): Z78.0 - Asymptomatic menopausal state Plan: Has not had a menstruation in over 1 year. She feels that she is menopausal and attributes this to her weight gain recently. (5) Colon cancer screening: Code(s): Z12.11 - Encounter for screening for malignant neoplasm of colon Plan: Had colonoscopy in 2019 and needed a repeat in 5 years due to poor bowel prep. Orders: Orders Comprehensive Man. Panel Fast Today Z13.1 - Encounter for screening for diabetes mellitus Complete Blood Count no Diff Today Z78.0 - Asymptomatic menopausal state Follicle Stimulating Hormone Today Z78.0 - Asymptomatic menopausal state Vitamin D 25-OH Total Today R79.89 - Other specified abnormal findings of blood chemistry TSH reflex Free T4 Today Z13.29 - Encounter for screening for other suspected endocrine disorder Referrals Gastroenterology Referral Z12.11 - Encounter for screening for malignant neoplasm of colon Medications: New fluoxetine 20 mg PO DAILY 90 days 90 caps 1RF F41.1 - Generalized anxiety disorder Discontinued fluoxetine Discontinued Reason: Doctor's Order 40 mg PO DAILY 90 days 90 caps 2RF F33.1 - Major depressive disorder, recurrent, moderate Coding Level of Care Code Est Pt Prev Care 40-64y(24462) Diagnoses Annual physical exam Z00.00 BIRGIT (generalized anxiety disorder) F41.1 MDD (major depressive disorder), recurrent episode, moderate F33.1 Menopause Z78.0 Colon cancer screening Z12.11 Additional Codes BIRGIT-7 Assessment Billing - BIRGIT-7 Assessment Tool: BIRGIT-7 Assessment 44805 ([id number])
[2023-08-24 08:16] VITALS: BP 116/78; BMI 29.7
== END 2023-08-24 08:45 | disposition home or self-care (01) ==
PROVIDERS: Visit Provider Physician Assistant
DX: Z00.00 Encounter for general adult medical examination without abnormal findings (principal); F41.1 Generalized anxiety disorder; F33.1 Major depressive disorder, recurrent, moderate; Z78.0 Asymptomatic menopausal state; Z12.11 Encounter for screening for malignant neoplasm of colon
CPT/HCPCS: 99396

== ENCOUNTER 2023-08-24 08:56 | Outpatient (REF) | payer OTHER, SELFPAY ==
[2023-08-24 10:41] LABS: Hematocrit 38.9 % (37.0-47.0); Hemoglobin 12.7 g/dl (12.0-16.0); Mean Corpuscular HGB Conc 32.6 g/dl (31.0-35.0); Mean Corpuscular Hemoglobin 29.4 pg (27.0-33.0); Mean Platelet Volume 10.9 fL (9.4-12.3); Platelet Count 259 X10*3/uL (160-400); Red Blood Count 4.32 X10*6/uL (4.20-5.50); Red Cell Distribution Width 14.5 % (11.0-16.0); White Blood Count 4.4 X10*3/uL (4.8-10.8)
[2023-08-24 12:03] LABS: Alanine Aminotransferase 12 U/L (0-31); Alkaline Phosphatase 79 U/L (39-117); Anion Gap 11 (12-20); Aspartate Amino Transferase 16 U/L (5-31); Bilirubin Total 0.4 mg/dL (0.0-1.0); Blood Urea Nitrogen 7 mg/dL (9-16); Calcium 9.8 mg/dL (8.4-10.2); Carbon Dioxide 28 mmol/L (22-29); Chloride 106 mmol/L (96-108); Estimated Glomerular Filt Rate > 60; Glucose Fasting 84 mg/dL (60-99); Potassium 4.1 mmol/L (3.3-5.1); Sodium 141 mmol/L (135-145); Total Protein 7.1 g/dL (6.5-8.0)
[2023-08-24 12:11] LABS: TSH reflex Free T4 0.98 uIU/mL (0.32-4.0); Vitamin D 25-OH Total 41.8 ng/mL (>30)
[2023-08-25 17:47] LABS: Follicle Stimulating Hormone 149.7 mIU/mL
== END 2023-08-24 08:57 | disposition home or self-care (01) ==
LOC: HO.LAB 08:56
PROVIDERS: PCP Physician Assistant; Visit Provider Physician Assistant
DX: Z13.1 Encounter for screening for diabetes mellitus (principal); Z78.0 Asymptomatic menopausal state; Z13.29 Encounter for screening for other suspected endocrine disorder; R79.89 Other specified abnormal findings of blood chemistry
CPT/HCPCS: 36415; 80053; 82306; 83001; 84443; 85027

== ENCOUNTER 2023-08-28 08:11 | Outpatient (REF) | payer OTHER, SELFPAY | END 2023-08-28 08:12 | disposition home or self-care (01) | LOC: HO.MAMMO 08:11 | PROVIDERS: PCP Physician Assistant; Visit Provider Physician Assistant | DX: Z12.31 Encounter for screening mammogram for malignant neoplasm of breast (principal) | CPT/HCPCS: 77063; 77067 ==

== ENCOUNTER → 2023-08-28 08:15 | Outpatient (BNV) | payer OTHER, SELFPAY | PROVIDERS: PCP Physician Assistant; Visit Provider Radiology Diagnostic Radiology | DX: Z12.31 Encounter for screening mammogram for malignant neoplasm of breast (principal) | CPT/HCPCS: 77063; 77067 ==

== ENCOUNTER 2023-10-23 10:27 | Outpatient (AMB) | payer OTHER, SELFPAY ==
--- NOTE | 2023-10-23 10:29 | MHC.OFFVIS ---
Vital Signs 10/23/23 10:37 Height 5 ft 6 in Weight 186 lb 1.122 oz BMI 30.0 BP 142/64 H Blood Pressure Location Lt brachial Position Sitting Pulse 72 Pulse Source Pulse Oximeter Pulse Oximetry (%) 98 Oxygen Delivery Method Room Air Intake Visit Reasons: Colonoscopy Screening Intake Note: Zoë presents in office today for a scheduled colo s/p scrn. CC; Recall colo s.p. - Last s.p with Dr. Chavarria (2019). Pt denies any new sx or concerns at this time. Allergies No Known Allergies [No Known Allergies*] Allergy (Verified 11/26/23 08:02) HPI HPI Colonoscopy Screening: Details: 53-year-old female here for preprocedural meeting to discuss a screening colonoscopy. She is referred by Uday Alvarez X Menometrorrhagia Uterine fibroids Depression * SURGICAL HISTORY Colonoscopy-2019, [facility] repeat in 5 years DUE TO INSUFFICIENT PREP Endometrial ablation Tubal ligation * ALLERGIES: NKDA * [employer] LABS: Laboratory Tests 08/24/23 09:18 WBC 4.4 L Hgb 12.7 Hct 38.9 MCV 90.0 MCH 29.4 Plt Count 259 Estimated GFR > 60 Total Bilirubin 0.4 AST 16 ALT 12 Alkaline Phosphatase 79 TSH 0.98 TODAY'S VISIT Her maternal uncle was recently dxed with crc. To her knowledge her parents never had polyps or siblings. This is her second colonoscopy. She did not have trouble with the prep and she will use dulcolax a couple of days before and eat a low residual diet 1 week prior. She is naive to anesthesia and sedation. She denies any cardiac or respiratory problems No ID problems. As above with the maternal uncle with colon cancer. [facility] Medical History (Updated 11/26/23 @ 08:09 by Nabeel Gomez MD) Well woman exam Perimenopause Colon cancer screening Bulky or enlarged uterus Annual physical exam Screening for hypothyroidism Screening for hypercholesterolemia Screening for diabetes mellitus (DM) Screening breast examination Well woman exam with routine gynecological exam Excessive bleeding in the premenopausal period Depressed Anxiety Surgical History History of colonoscopy History of endometrial ablation Hx of tubal ligation Family History Father Hypertension Mother Hypertension Maternal Uncle Colon cancer Social History Housing: House Alcohol intake: never Patient Tobacco Use Status: Never used Tobacco e-Cigarette/Vaping Use: Never Used Second Hand Smoke Exposure: No service: No Current occupational status: employed 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 Current occupational exposures/hazards: No Gender identity: Female Cognitive needs: No Hearing needs: No Vision needs: Yes Female Reproductive History Menstrual Age of Menarche: 12 Review of Systems Const Denies fatigue, Denies fever(s), Denies night sweats, Denies poor appetite and Denies weight loss Eyes Details: glasses Reports requires corrective lenses ENT Reports Normal hearing present, Denies dental pain, Denies dysphagia, Denies hearing loss, Denies mouth pain, Denies odynophagia, Denies throat swelling, Denies tongue swelling and Reports other (Dentition adequate) Card Reports no additional complaints Resp Reports no additional complaints GI Details: Denies abdominal pain, Denies melena, Denies bloating, Denies hematochezia, Denies constipation, Denies GI cramping, Denies dysphagia, Denies excessive flatus, Denies early satiety, Denies heartburn, Denies diarrhea, Denies nausea, Denies odynophagia, Denies vomiting and Denies hematemesis Skin/Breast Denies pruritus, Denies lesions, Denies rash and Denies jaundice Neuro Reports Normal hearing present and Denies Abnormal speech present Endo Denies fatigue Aller/Immun Denies throat swelling and Denies tongue swelling Physical Exam Vital Signs: Last Vital Signs Pulse 72 10/23/23 10:37 BP 142/64 H 10/23/23 10:37 Pulse Ox 98 10/23/23 10:37 Oxygen Delivery Method Room Air 10/23/23 10:37 BMI result Body Mass Index 30.0 Const General: cooperative, no acute distress, well developed and well groomed Nutritional Appearance: well nourished and obese Orientation/consciousness: oriented to person, oriented to place and oriented to time Limitations: No language barrier HEENT Head: Yes normocephalic and Yes atraumatic Eyes General: appearance normal, both eyes and all related structures Pupils: Equal, round and reactive pupils present Neck Neck: Yes normal visual inspection and Yes no lymphadenopathy Thyroid: Thyroid normal Resp Effort & Inspection: normal respiratory effort and able to speak in complete sentences Auscultation: clear to auscultation bilaterally Cardio Rate: regular rate Rhythm: regular rhythm Heart sounds: Normal, physiologic split S2 sound present Peripheral pulses: radial pulses present and posterior tibial pulses present GI Inspection: No distended, No Abdominal panniculus present and Yes obesity Palpation (GI): Soft to palpation, nontender, no guarding, not rigid and No hepatosplenomegaly present Percussion: Yes normal to percussion Auscultation: normal bowel sounds Rectal Exam - Female: deferred Skin General skin exam: no rashes or lesions noted, turgor normal, skin not dry, no jaundice, No spider nevi and no striae Rashes: no rashes Nails: normal Neuro General: oriented to person, oriented to place and oriented to time Cranial nerves: Yes Equal, round and reactive pupils present and Yes Normal hearing present Speech: No Abnormal speech present Extrem General: Yes normal to inspection, No clubbing, No cyanosis and No edema Psych Appearance: grossly normal and well kempt Mental Status: mental status grossly normal Speech and movement: Normal speech and movement present Affect: normal affect Attitude: cooperative Thought process: Normal thought process present and not confabulating Thought content: Normal thought content present Insight: Fair insight present (Psych) Judgement: Fair judgement present (Psych) Results Reviewed Results Reviewed: Laboratory Tests 08/24/23 09:18 WBC 4.4 L Hgb 12.7 Hct 38.9 MCV 90.0 MCH 29.4 Plt Count 259 Estimated GFR > 60 Total Bilirubin 0.4 AST 16 ALT 12 Alkaline Phosphatase 79 TSH 0.98 Assessment & Plan Assessment & Plan (1) Pre-op examination: Code(s): Z01.818 - Encounter for other preprocedural examination Category: Medical Plan Her maternal uncle was recently dxed with crc. To her knowledge her parents never had polyps or siblings. This is her second colonoscopy. She did not have trouble with the prep and she will use dulcolax a couple of days before and eat a low residual diet 1 week prior. She is naive to anesthesia and sedation. She denies any cardiac or respiratory problems No ID problems. As above with the maternal uncle with colon cancer. Orders: Orders Colonoscopy - GI Use Only 10/23/23 Z01.818 - Encounter for other preprocedural examination Coding Level of Care Code New Pt Level 3 (50976) Diagnoses Pre-op examination Z01.818
[2023-10-23 10:37] VITALS: BP 142/64; PULSE 72; O2SAT 98
== END 2023-10-23 10:56 | disposition home or self-care (01) ==
PROVIDERS: PCP Physician Assistant; Visit Provider Nurse Practitioner
DX: Z01.818 Encounter for other preprocedural examination (principal); Z12.11 Encounter for screening for malignant neoplasm of colon
CPT/HCPCS: S0285

== ENCOUNTER → 2023-10-23 10:27 | Outpatient (BNVA) | payer OTHER, SELFPAY | PROVIDERS: PCP Physician Assistant; Visit Provider Nurse Practitioner ==

== ENCOUNTER 2023-11-26 07:57 | Outpatient (AMB) | payer OTHER, SELFPAY ==
--- NOTE | 2023-11-26 07:57 | MHC.OFFVIS ---
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 No complaints. No pelvic pain pressure or vaginal bleeding, the patient has history of uterine myoma Last Pap/HPV was negative in 05/18 Last Mammogram was BI-RADS 1 in 09/17 The patient is scheduled for a screening Colonoscopy in 04/19 [facility] Medical History (Updated 11/26/23 @ 08:09 by Nabeel Gomez MD) Well woman exam Perimenopause Colon cancer screening Bulky or enlarged uterus Annual physical exam Screening for hypothyroidism Screening for hypercholesterolemia Screening for diabetes mellitus (DM) Screening breast examination Well woman exam with routine gynecological exam Excessive bleeding in the premenopausal period Depressed Anxiety Surgical History History of colonoscopy History of endometrial ablation Hx of tubal ligation Family History Father Hypertension Mother Hypertension Maternal Uncle Colon cancer Social History Housing: House Alcohol intake: never Patient Tobacco Use Status: Never used Tobacco e-Cigarette/Vaping Use: Never Used Second Hand Smoke Exposure: No service: No Current occupational status: employed 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 Current occupational exposures/hazards: No Gender identity: Female Cognitive needs: No Hearing needs: No Vision needs: Yes Female Reproductive History Menstrual Age of Menarche: 12 control method: permanent sterilization Menopause type: natural Total pregnancies: 3 Full term: 2 Number of Living Children: 2 Ab spontaneous: 1 Date of last pap smear: 05/22/21 Date of Mammogram: 08/28/23 Review of Systems Const All systems reviewed & are unremarkable except as noted in HPI and below Card Reports as per HPI Resp Reports as per HPI GI Reports as per HPI and Reports no additional complaints Reports as per HPI Physical Exam Const General: cooperative, healthy appearing and comfortable Chest Chest palpation & inspection: normal inspection of the chest and normal palpation of entire chest wall Breast/axilla inspection: normal inspection of the breasts and normal inspection of the axillae Breast/axilla palpation: normal palpation of the breasts, normal palpation of the axillae and no axillary lymphadenopathy Resp Effort & Inspection: normal respiratory effort Auscultation: clear to auscultation bilaterally Percussion: percussion normal Cardio Palpation: normal PMI Rate: regular rate Rhythm: regular rhythm Heart sounds: no murmurs and no rubs Peripheral pulses: Peripheral pulses 2+ throughout GI Inspection: Yes normal to inspection Palpation (GI): Soft to palpation, nontender, no guarding, not rigid and No hepatosplenomegaly present Percussion: Yes normal to percussion Auscultation: normal bowel sounds Rectal Exam - Female: deferred General: Yes bladder normal to palpation External Female Exam: No lesion Speculum Exam - Vagina: normal appearance of the vagina, normal palpation, normal vaginal discharge and not erythematous Speculum Exam - Cervix: normal appearance of the cervix and normal palpation Bimanual exam- vagina & uterus: normal bimanual exam, normal palpation, uterine size normal, bladder normal to palpation, consistency normal and normal palpation Bimanual Exam- Adnexa, other: normal adnexae, no masses and no tenderness Assessment & Plan Assessment & Plan (1) Well woman exam: Code(s): Z01.419 - Encounter for gynecological examination (general) (routine) without abnormal findings Category: Medical Plan: Co testing not indicated this year. Counseled the patient about the recommended dietary allowance of 1200 mg of Calcium & 600 IU of vitamin D. Instructions given to patient to schedule next screening Mammogram in 09/18. The patient is scheduled for screening colonoscopy in . The patient was instructed to perform monthly self-breast exams and schedule annual exam in a year. All questions answered and the patient verbalized understanding. (2) Uterine myoma: Code(s): D25.9 - Leiomyoma of uterus, unspecified Category: Medical Plan: Instructions given the patient to schedule pelvic ultrasound and a follow-up appointment afterwards within 2-3 weeks. All questions answered, the patient verbalized understanding Coding Level of Care Code Est Pt Prev Care 40-64y(92676) Diagnoses Well woman exam Z01.419 Uterine myoma D25.9
[2023-11-26 07:58] VITALS: BP 110/70; BMI 29.9
== END 2023-11-26 08:12 | disposition home or self-care (01) ==
PROVIDERS: PCP Physician Assistant; Visit Provider Obstetrics & Gynecology
DX: Z01.419 Encounter for gynecological examination (general) (routine) without abnormal findings (principal); D25.9 Leiomyoma of uterus, unspecified
CPT/HCPCS: 99396

== ENCOUNTER → 2023-11-26 07:57 | Outpatient (BNVA) | payer OTHER, SELFPAY | PROVIDERS: PCP Physician Assistant; Visit Provider Obstetrics & Gynecology ==

== ENCOUNTER 2023-12-04 10:56 | Outpatient (REF) | payer OTHER, SELFPAY ==
--- NOTE | ~2023-12-04 | US_ITS ---
EXAM: Pelvic Ultrasound CLINICAL INDICATION: Fibroid COMPARISON: Ultrasound June 11, 2021 TECHNIQUE: The pelvis was evaluated using transabdominal and transvaginal imaging. FINDINGS: The uterus measures 8.3 x 3.8 x 5.0 cm in longitudinal by AP by transverse dimension. The endometrial stripe measures 1.4 cm. Prominent amount of fluid is noted within the endometrium. Two discrete fibroids noted within the uterus, largest measuring 3 cm (previously 3.5 cm). Nabothian cysts identified within the cervix. The left ovary measures approximately 2.5 x 1.9 x 1.5 cm and is normal. The right ovary measures approximately 1.8 x 1.3 x 1.3 cm and is also normal. Spectral analysis reveals normal arterial and venous waveforms in the bilateral ovaries. There is no free fluid in the pelvis. US/US pelvic and transvaginal IMPRESSION: 1. Thickened endometrium containing a prominent amount of fluid. This is an abnormal finding in a postmenopausal patient. Direct inspection with possible biopsy likely warranted. 2. Fibroid uterus. Electronically signed by: Brant Stone MD 12/24/2023 07:32 AM EDT
== END 2023-12-04 10:57 | disposition home or self-care (01) ==
LOC: HO.US 10:56
PROVIDERS: PCP Physician Assistant; Visit Provider Obstetrics & Gynecology
DX: D25.9 Leiomyoma of uterus, unspecified (principal)
CPT/HCPCS: 76830; 76856

== ENCOUNTER 2023-12-16 11:40 | Outpatient (AMB) | payer OTHER, SELFPAY ==
[2023-12-16 11:42] VITALS: BP 100/50; PULSE 82; O2SAT 97; BMI 30.1
--- NOTE | 2023-12-16 11:42 | MHC.PC.OV ---
Vital Signs 12/16/23 11:42 Height 5 ft 6 in Weight 186 lb 8 oz BMI 30.1 BP 100/50 L Blood Pressure Location Lt brachial Position Sitting Pulse 82 Pulse Source Pulse Oximeter Pulse Oximetry (%) 97 Oxygen Delivery Method Room Air Intake Visit Reasons: Pain in my hands and elbow Quantitative Analyst Required: No Accompanied by: Self / Same As Patient Allergies No Known Allergies [No Known Allergies*] Allergy (Verified 12/16/23 11:55) Medication List - Last Reconciled 12/16/23 by Uday Alvarez PA-C cholecalciferol (vitamin D3) 1,250 mcg PO QWEEK clonazepam 0.5 mg PO BEDTIME 7 days fluoxetine 20 mg PO DAILY 90 days Tobacco use date assessed: 08/24/23 Dental Screening Dental Screen Date: 08/24/23 HPI Pain in my hands and elbow HPI Details Patient is a 53-year-old female here today for problem visit. Has been having bilateral hand pain over the last year. She did occupational therapy which was somewhat effective though continues to have hand pain especially when opening water bottles and jars. She reports her hand pain is affecting her ability do her job at times. She does not report any particular numbness or tingling her palms. [facility] Medical History Well woman exam Perimenopause Colon cancer screening Bulky or enlarged uterus Annual physical exam Screening for hypothyroidism Screening for hypercholesterolemia Screening for diabetes mellitus (DM) Screening breast examination Well woman exam with routine gynecological exam Excessive bleeding in the premenopausal period Depressed Anxiety Surgical History History of colonoscopy History of endometrial ablation Hx of tubal ligation Family History Father Hypertension Mother Hypertension Maternal Uncle Colon cancer Social History Housing: House Alcohol intake: never Patient Tobacco Use Status: Never used Tobacco e-Cigarette/Vaping Use: Never Used Second Hand Smoke Exposure: No service: No Current occupational status: employed 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 Dima Pickens, Sammi Huang, Harley Wall and colleagues, with an educational fartun from [email or web address]. Review of Systems Const Denies headache(s) Eyes Denies loss of vision ENT Denies vertigo, Denies dizziness, Denies headache(s) and Denies sore throat Card Denies chest pain, Denies leg edema and Denies lightheadedness Resp Denies cough, Denies hemoptysis and Denies wheezing GI Denies abdominal pain, Denies melena, Denies constipation, Denies diarrhea and Denies vomiting Denies urinary frequency, Denies dysuria and Denies urinary urgency Musc Denies arthralgias, Denies joint swelling, Denies numbness and Denies tingling Neuro Denies Abnormal speech present, Denies behavioral changes, Denies vertigo, Denies dizziness, Denies headache(s), Denies loss of vision, Denies memory loss, Denies numbness and Denies tingling Psych Denies anxiety, Denies behavioral changes, Denies depression, Denies memory loss and Denies panic attacks Mejia/Lymph Denies easy bleeding and Denies easy bruising Aller/Immun Denies wheezing Physical exam (Primary Care) Vital Signs: Last Vital Signs Pulse 82 12/16/23 11:42 BP 100/50 L 12/16/23 11:42 Pulse Ox 97 12/16/23 11:42 Oxygen Delivery Method Room Air 12/16/23 11:42 BMI result Body Mass Index 30.1 Tobacco/Smoking Status: Tobacco use Status Tobacco use date assessed 08/24/23 12/16/23 11:46 Patient Tobacco Use Status Never used Tobacco 12/16/23 11:46 Tobacco use type 10/16/23 12:08 e-Cigarette/Vaping Use Never Used 12/16/23 11:46 Thrive Assessment: Date of Thrive Assessment Date Thrive assessed 08/24/23 12/16/23 11:46 Const General: healthy appearing, no acute distress, alert and awake Nutritional Appearance: well nourished Orientation/consciousness: oriented to person, oriented to place and oriented to time HENMT Ears: TM's normal bilaterally General nose exam: Normal nasal mucous membranes and turbinates present Eyes Conjunctivae: conjunctivae normal Sclerae: sclerae normal Pupils: Equal, round and reactive pupils present Neck Neck: Yes no lymphadenopathy and Yes no JVD Thyroid: Thyroid normal Carotids: no bruits Resp Effort & Inspection: normal respiratory effort and not tachypneic Auscultation: no crackles, no rales, no rhonchi and no wheezes Cardio Rate: regular rate Rhythm: regular rhythm Heart sounds: no murmurs and normal S1 and S2 GI Palpation (GI): Soft to palpation, nontender, no hepatomegaly and no splenomegaly Auscultation: normal bowel sounds Skin General skin exam: no rashes or lesions noted and dry skin Neuro General: oriented to person, oriented to place and oriented to time Cranial nerves: Yes Equal, round and reactive pupils present Speech: No Abnormal speech present Gait exam (Neuro): Normal gait present Motor exam (neuro): no tremor noted Extrem Right upper extremity: full ROM Left upper extremity: full ROM Right lower extremity: full ROM; no edema Left lower extremity: full ROM; no edema Psych Mental Status: mental status grossly normal Speech and movement: Normal speech and movement present Affect: normal affect Attitude: cooperative Thought process: Normal thought process present Assessment and Plan Assessment & Plan (1) Bilateral hand pain: Code(s): M79.641 - Pain in right hand; M79.642 - Pain in left hand Plan: As per HPI patient reporting bilateral hand pain particularly when trying to open up jars or manipulate objects. She has done occupational therapy in the past which helped to a small degree. Will send for x-rays of bilateral hands and start rheumatology workup. Will also send for EMG to evaluate for median nerve neuropathy Will supply patient with meloxicam to use on an as needed basis for her and pains. Orders: Orders NE electromyogram (EMG) Today M79.641 - Pain in right hand, M79.642 - Pain in left hand XR hand LT 2V Today M79.641 - Pain in right hand, M79.642 - Pain in left hand XR hand RT 2V Today M79.641 - Pain in right hand, M79.642 - Pain in left hand KELLY Reflex Titer and Pattern Today M79.641 - Pain in right hand, M79.642 - Pain in left hand Rheumatoid Factor Today M79.641 - Pain in right hand, M79.642 - Pain in left hand Cyclic Citrullinated Peptide Today M79.641 - Pain in right hand, M79.642 - Pain in left hand Medications: New meloxicam 15 mg PO DAILY 30 days 30 tabs 1RF M79.641 - Pain in right hand, M79.642 - Pain in left hand Coding Level of Care Code Est Pt Level 4 (28133) Diagnoses Bilateral hand pain M79.641; M79.642
== END 2023-12-16 12:10 | disposition home or self-care (01) ==
PROVIDERS: PCP Physician Assistant; Visit Provider Physician Assistant
DX: M79.641 Pain in right hand (principal); M79.642 Pain in left hand
CPT/HCPCS: 99214

== ENCOUNTER 2023-12-16 12:16 | Outpatient (REF) | payer OTHER, SELFPAY ==
--- NOTE | ~2023-12-16 | XR_ITS ---
EXAMINATION: XR HAND, RIGHT XR HAND, LEFT CLINICAL INFORMATION: Pain. COMPARISON: None available. TECHNIQUE: PA, lateral, and oblique views of each hand. FINDINGS: RIGHT HAND: Moderate osteoarthritis of the 1st CMC joint with joint space narrowing and marginal osteophytes. More minimal osteoarthritis in multiple interphalangeal joints. Soft tissue swelling at the 1st CMC joint. No erosions. No fracture or malalignment. LEFT HAND: Moderate osteoarthritis at the 1st CMC joint with joint space narrowing and marginal osteophytes. More mild osteoarthritis in multiple interphalangeal joints. MCP joints appear well-preserved. No erosions. Bone mineralization is normal. No fracture or malalignment. 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 More mild osteoarthritis in multiple interphalangeal joints. No acute osseous findings. Electronically signed by: Og Soto MD 01/08/2024 10:11 PM EDT
--- NOTE | ~2023-12-16 | XR_ITS ---
EXAMINATION: XR HAND, RIGHT XR HAND, LEFT CLINICAL INFORMATION: Pain. COMPARISON: None available. TECHNIQUE: PA, lateral, and oblique views of each hand. FINDINGS: RIGHT HAND: Moderate osteoarthritis of the 1st CMC joint with joint space narrowing and marginal osteophytes. More minimal osteoarthritis in multiple interphalangeal joints. Soft tissue swelling at the 1st CMC joint. No erosions. No fracture or malalignment. LEFT HAND: Moderate osteoarthritis at the 1st CMC joint with joint space narrowing and marginal osteophytes. More mild osteoarthritis in multiple interphalangeal joints. MCP joints appear well-preserved. No erosions. Bone mineralization is normal. No fracture or malalignment. 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 More mild osteoarthritis in multiple interphalangeal joints. No acute osseous findings. Electronically signed by: Og Soto MD 01/08/2024 10:11 PM EDT
[2023-12-16 14:08] LABS: Rheumatoid Factor < 13.0 IU/mL (<15.0)
[2023-12-22 22:19] LABS: Cyclic Citrullinated Peptide <16 UNITS
[2023-12-23 20:04] LABS: Anti Nuclear Antibody Pattern Nuclear, Centromere; Anti Nuclear Antibody Screen POSITIVE (NEGATIVE)
== END 2023-12-16 12:17 | disposition home or self-care (01) ==
LOC: HO.XRAY 12:16
PROVIDERS: PCP Physician Assistant; Visit Provider Physician Assistant
DX: M79.641 Pain in right hand (principal); M79.642 Pain in left hand
CPT/HCPCS: 36415; 73120; 86038; 86039; 86200; 86431

== ENCOUNTER 2023-12-30 07:16 | Outpatient (AMB) | payer OTHER, SELFPAY ==
[2023-12-30 07:16] VITALS: BP 120/70; BMI 29.9
--- NOTE | 2023-12-30 07:16 | A.OFFVIS_ITS ---
Vital Signs 12/30/23 07:16 Height 5 ft 6 in Weight 185 lb 3.013 oz BMI 29.9 BP 120/70 Intake Visit Reasons: U/S results Utilization Management Um Nurse Required: No Information Interpreted: non-clinical & clinical Accompanied by: Self / Same As Patient Allergies No Known Allergies [No Known Allergies*] Allergy (Verified 12/30/23 07:20) Post menopausal: Yes HPI Comments Details: Presenting for pelvic ultrasound follow-up with no complaints, no history of vaginal bleeding. Pelvic ultrasound showed the following: The uterus measures 8.3 x 3.8 x 5.0 cm in longitudinal by AP by transverse dimension. The endometrial stripe measures 1.4 cm. Prominent amount of fluid is noted within the endometrium. Two discrete fibroids noted within the uterus, largest measuring 3 cm (previously 3.5 cm). Nabothian cysts identified within the cervix. The left ovary measures approximately 2.5 x 1.9 x 1.5 cm and is normal. The right ovary measures approximately 1.8 x 1.3 x 1.3 cm and is also normal. Spectral analysis reveals normal arterial and venous waveforms in the bilateral ovaries. There is no free fluid in the pelvis. Last co testing was in 05/18 was negative [facility] Medical History Well woman exam Perimenopause Colon cancer screening Bulky or enlarged uterus Annual physical exam Screening for hypothyroidism Screening for hypercholesterolemia Screening for diabetes mellitus (DM) Screening breast examination Well woman exam with routine gynecological exam Excessive bleeding in the premenopausal period Depressed Anxiety Surgical History History of colonoscopy History of endometrial ablation Hx of tubal ligation Family History Father Hypertension Mother Hypertension Maternal Uncle Colon cancer Social History Housing: House Alcohol intake: never Patient Tobacco Use Status: Never used Tobacco e-Cigarette/Vaping Use: Never Used Second Hand Smoke Exposure: No service: No Current occupational status: employed 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 Current occupational exposures/hazards: No Gender identity: Female Cognitive needs: No Hearing needs: No Vision needs: Yes Female Reproductive History Menstrual Age of Menarche: 12 Review of Systems Const All systems reviewed & are unremarkable except as noted in HPI and below Reports as per HPI and Reports no additional complaints GI Reports no additional complaints Reports no additional complaints Physical Exam Vital Signs: Last Vital Signs BP 120/70 12/30/23 07:16 BMI result Body Mass Index 29.9 Assessment & Plan Assessment & Plan (1) Abnormal ultrasound of endometrium: Comment: Endometrial fluid with 14 mm endometrial stripe Code(s): R93.5 - Abnormal findings on diagnostic imaging of other abdominal regions, including retroperitoneum Category: Medical Plan: Discussed with the patient the finding of thickened endometrium with fluid in the endometrial cavity, in spite of no vaginal bleeding the concern is the endometrial fluid visualized on ultrasound in case of cervical stenosis might be bleeding into the endometrial cavity and the blood and/or tissue was are unable to pass through the cervical os. Endometrial sampling in postmenopausal bleeding with endometrial fluid is indicated in case endometrial thickness is above 4 mm. Recommended to the patient that the next step is an endometrial sampling via hysteroscopy D&C possible polypectomy versus endometrial biopsy to r/o endometrial pathology including hyperplasia or cancer. All the pros and cons risks and benefits of each approach were discussed with the patient, endometrial biopsy being less invasive, office procedure with less sensitivity and inability diagnose a polyp and removal versus hysteroscopy done under anesthesia more invasive more sensitive to endometrial cancer and possibility of diagnosing and endometrial polyp with the possibility of polypectomy. All questions were answered pt verbalized understanding and decided to proceed with endometrial biopsy. Instructions given the patient to schedule EMB appointment within 1-2 weeks (2) Uterine myoma: Code(s): D25.9 - Leiomyoma of uterus, unspecified Category: Medical Plan: Discussed with the patient the findings on pelvic ultrasound & the risk of myosarcoma; discussed with the patient the options of treatment including expectant management versus hysterectomy; the pros and cons, risks benefits of each approach were discussed with the patient including the fact that in cases of myosarcoma, surgical treatment can lead to early diagnosis and positively affects the prognosis; after further discussion, the patient decided to proceed with expectant management. Will repeat pelvic ultrasound periodically. Instructions given to patient to call in case any of the following occurs: pressure symptoms, abnormal uterine bleeding, pelvic pain; and to schedule a 12- months pelvic ultrasound (order placed) and a follow-up appointment . All questions answered, the patient verbalized understanding and agreed with the plan . Orders: Orders US pelvic and transvaginal 1 Year D25.9 - Leiomyoma of uterus, unspecified Coding Level of Care Code Est Pt Level 3 (67815) Diagnoses Abnormal ultrasound of endometrium R93.5 Uterine myoma D25.9
== END 2023-12-30 07:58 | disposition home or self-care (01) ==
LOC: HO.HWS 07:16
PROVIDERS: PCP Physician Assistant; Visit Provider Obstetrics & Gynecology
DX: R93.5 Abnormal findings on diagnostic imaging of other abdominal regions, including retroperitoneum (principal); D25.9 Leiomyoma of uterus, unspecified
CPT/HCPCS: 99213

== ENCOUNTER → 2023-12-30 07:16 | Outpatient (BNVA) | payer OTHER, SELFPAY | PROVIDERS: PCP Physician Assistant; Visit Provider Obstetrics & Gynecology ==

== ENCOUNTER 2024-01-13 07:25 | Outpatient (REF) | payer OTHER, SELFPAY | END 2024-01-13 07:26 | disposition home or self-care (01) | LOC: HO.LNP 07:25 | PROVIDERS: PCP Physician Assistant; Visit Provider Obstetrics & Gynecology | DX: R93.5 Abnormal findings on diagnostic imaging of other abdominal regions, including retroperitoneum (principal) | CPT/HCPCS: 58100; 88305 ==

== ENCOUNTER 2024-01-13 07:25 | Outpatient (AMB) | payer OTHER, SELFPAY ==
[2024-01-13 07:34] VITALS: BP 122/76; BMI 29.9
--- NOTE | 2024-01-13 07:34 | MHC.OFFVIS ---
Vital Signs 01/13/24 07:34 Height 5 ft 6 in Weight 185 lb 3.013 oz BMI 29.9 BP 122/76 Intake Visit Reasons: EMB Information Management Specialist Required: No Information Interpreted: non-clinical & clinical Manager Convention: Manager Convention Present (Keiko GONZALEZ) Accompanied by: Spouse Allergies No Known Allergies [No Known Allergies*] Allergy (Verified 01/13/24 07:35) Post menopausal: Yes HPI Comments Details: Presenting for endometrial biopsy [facility] Medical History Well woman exam Perimenopause Colon cancer screening Bulky or enlarged uterus Annual physical exam Screening for hypothyroidism Screening for hypercholesterolemia Screening for diabetes mellitus (DM) Screening breast examination Well woman exam with routine gynecological exam Excessive bleeding in the premenopausal period Depressed Anxiety Surgical History History of colonoscopy History of endometrial ablation Hx of tubal ligation Family History Father Hypertension Mother Hypertension Maternal Uncle Colon cancer Social History Housing: House Alcohol intake: never Patient Tobacco Use Status: Never used Tobacco e-Cigarette/Vaping Use: Never Used Second Hand Smoke Exposure: No service: No Current occupational status: employed 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 hysteroscopy D&C) & the risks were discussed with the patient including but not limited: pain, uterine perforation, bleeding, infection, possible injury to bladder, bowel, ureter, possible need for blood transfusion with all its possible risks. The patient verbalized understanding all questions answered and signed consent. The patient was placed into the dorsal lithotomy position; a speculum was inserted in the vagina. Using aseptic technique for the procedure, the cervix was cleansed with Betadine. The anterior lip of the cervix was grasped with a single tooth tenaculum. The uterus was sounded to 7 cm with a 4 mm Pipelle was used. Tissues samples were obtained and placed in formalin, in a patient labeled container and sent to the pathology department. At the end of the procedure, there was minimal bleeding noted The patient tolerated the procedure well and was discharged in good condition with the following instructions: Nothing in the vagina until the bleeding stops. No sex until the bleeding stops, to call if any of the following occurs: fever (>100.4), flu-like symptoms, abdominal pain, heavy bleeding, four smelling vaginal discharge. The patient was instructed to schedule a Follow up appointment in 2 weeks to discuss pathology results of the biopsy and treatment options. This note was generated with a voice recognition program. Some errors may have been overlooked during the review of this note. Sometimes these errors may affect the content or meaning of a given sentence. [id number] Biopsy Assessment & Plan Assessment & Plan (1) Abnormal ultrasound of endometrium: Comment: Endometrial fluid with 14 mm endometrial stripe Code(s): R93.5 - Abnormal findings on diagnostic imaging of other abdominal regions, including retroperitoneum Category: Medical Plan: EMB done, see procedure note Orders: Orders AMB Endometrial Biopsy Today R93.5 - Abnormal findings on diagnostic imaging of other abdominal regions, including retroperitoneum Coding Level of Care Code Procedure Only Diagnoses Abnormal ultrasound of endometrium R93.5 CPT Codes Endometrial Biopsy - CPT: 91430-[id number] Biopsy ([id number])
== END 2024-01-13 08:03 | disposition home or self-care (01) ==
LOC: HO.HWS 07:25
PROVIDERS: PCP Physician Assistant; Visit Provider Obstetrics & Gynecology
DX: R93.5 Abnormal findings on diagnostic imaging of other abdominal regions, including retroperitoneum (principal)
CPT/HCPCS: 58100

== ENCOUNTER 2024-01-28 10:58 | Outpatient (AMB) | payer OTHER, SELFPAY ==
--- NOTE | 2024-01-28 10:59 | A.OFFVIS_ITS ---
Intake Visit Reasons: EMB results Allergies No Known Allergies [No Known Allergies*] Allergy (Verified 01/13/24 07:35) HPI Comments Details: The patient scheduled a telehealth visit for follow-up after endometrial biopsy. The patient has no complaints, no vaginal bleeding, no feverishness chills or abdominal pain. The endometrial biopsy pathology report showed the following: Endometrium, biopsy: Scant benign inactive endometrium with stromal collapse, benign endocervical glandular epithelium, and abundant inflamed benign squamous epithelium; no atypia or carcinoma. Comment: The findings do not explain an abnormal ultrasound [facility] Medical History Well woman exam Perimenopause Colon cancer screening Bulky or enlarged uterus Annual physical exam Screening for hypothyroidism Screening for hypercholesterolemia Screening for diabetes mellitus (DM) Screening breast examination Well woman exam with routine gynecological exam Excessive bleeding in the premenopausal period Depressed Anxiety Surgical History History of colonoscopy History of endometrial ablation Hx of tubal ligation Family History Father Hypertension Mother Hypertension Maternal Uncle Colon cancer Social History Housing: House Alcohol intake: never Patient Tobacco Use Status: Never used Tobacco e-Cigarette/Vaping Use: Never Used Second Hand Smoke Exposure: No service: No Current occupational status: employed 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 Current occupational exposures/hazards: No Gender identity: Female Cognitive needs: No Hearing needs: No Vision needs: Yes Female Reproductive History Menstrual Age of Menarche: 12 Review of Systems Const All systems reviewed & are unremarkable except as noted in HPI and below Reports as per HPI and Reports no additional complaints GI Reports no additional complaints Reports no additional complaints Telehealth Telehealth Telehealth Platform: Telephone Location of provider rendering services: practice address Location of patient: address on file Patient Identification confirmed using: Name, : Yes Telehealth method: video Patient verbally consented to treatment: Yes Patient verbally consented to billing insurance company: Yes Patient informed of any privacy concerns related to visit: Yes Assessment & Plan Assessment & Plan (1) Abnormal ultrasound of endometrium: Comment: Endometrial fluid with 14 mm endometrial stripe Code(s): R93.5 - Abnormal findings on diagnostic imaging of other abdominal regions, including retroperitoneum Category: Medical Plan: Discussed with the patient the results of the pathology showing scan inactive endometrium and the fact that the pathogocal finding does not explained the thickened endometrium by ultrasound, recommended hysteroscopy D&C possible polypectomy/myomectomy. Instructions given the patient to schedule a preop visit for hysteroscopy D&C possible polypectomy myomectomy. All questions answered, the patient verbalized understanding I spent a total of 20 minutes reviewing the chart, talking to the patient via video and documenting in the medical record. Coding Level of Care Code Tele Est Pt Level 1 (19014) Diagnoses Abnormal ultrasound of endometrium R93.5
== END 2024-01-28 12:55 | disposition home or self-care (01) ==
LOC: HO.HWS 10:58
PROVIDERS: PCP Physician Assistant; Visit Provider Obstetrics & Gynecology
DX: R93.5 Abnormal findings on diagnostic imaging of other abdominal regions, including retroperitoneum (principal)
CPT/HCPCS: 99211

== ENCOUNTER → 2024-01-28 10:58 | Outpatient (BNVA) | payer OTHER, SELFPAY | PROVIDERS: PCP Physician Assistant; Visit Provider Obstetrics & Gynecology ==

== ENCOUNTER 2024-02-04 14:06 | Outpatient (AMB) | payer OTHER, SELFPAY ==
[2024-02-04 14:36] VITALS: BMI 29.9
--- NOTE | 2024-02-04 14:36 | MHC.OFFVIS ---
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 The endometrial biopsy pathology report showed the following: Endometrium, biopsy: Scant benign inactive endometrium with stromal collapse, benign endocervical glandular epithelium, and abundant inflamed benign squamous epithelium; no atypia or carcinoma. Comment: The findings do not explain an abnormal ultrasound Pelvic ultrasound showed the following: The uterus measures 8.3 x 3.8 x 5.0 cm in longitudinal by AP by transverse dimension. The endometrial stripe measures 1.4 cm. Prominent amount of fluid is noted within the endometrium. Two discrete fibroids noted within the uterus, largest measuring 3 cm (previously 3.5 cm). Nabothian cysts identified within the cervix. The left ovary measures approximately 2.5 x 1.9 x 1.5 cm and is normal. The right ovary measures approximately 1.8 x 1.3 x 1.3 cm and is also normal. Spectral analysis reveals normal arterial and venous waveforms in the bilateral ovaries. There is no free fluid in the pelvis. [facility] Medical History Well woman exam Perimenopause Colon cancer screening Bulky or enlarged uterus Annual physical exam Screening for hypothyroidism Screening for hypercholesterolemia Screening for diabetes mellitus (DM) Screening breast examination Well woman exam with routine gynecological exam Excessive bleeding in the premenopausal period Depressed Anxiety Surgical History History of colonoscopy History of endometrial ablation Hx of tubal ligation Family History Father Hypertension Mother Hypertension Maternal Uncle Colon cancer Social History Housing: House Alcohol intake: never Patient Tobacco Use Status: Never used Tobacco e-Cigarette/Vaping Use: Never Used Second Hand Smoke Exposure: No service: No Current occupational status: employed 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 Current occupational exposures/hazards: No Gender identity: Female Cognitive needs: No Hearing needs: No Vision needs: Yes Female Reproductive History Menstrual Age of Menarche: 12 Date of last menstrual period: 02/23/20 Total pregnancies: 2 Full term: 2 Review of Systems Card Reports as per HPI and Reports no additional complaints Resp Reports as per HPI and Reports no additional complaints GI Reports as per HPI and Reports no additional complaints Reports as per HPI Physical Exam Vital Signs: BMI result Body Mass Index 29.9 Const General: cooperative, healthy appearing and comfortable Resp Effort & Inspection: normal respiratory effort Auscultation: clear to auscultation bilaterally Percussion: percussion normal Cardio Palpation: normal PMI Rate: regular rate Rhythm: regular rhythm Heart sounds: no murmurs and no rubs Peripheral pulses: Peripheral pulses 2+ throughout GI Inspection: Yes normal to inspection Palpation (GI): Soft to palpation, nontender, no guarding, not rigid and No hepatosplenomegaly present Percussion: Yes normal to percussion Auscultation: normal bowel sounds Rectal Exam - Female: deferred Assessment & Plan Assessment & Plan (1) Abnormal ultrasound of endometrium: Comment: Endometrial fluid with 14 mm endometrial stripe Code(s): R93.5 - Abnormal findings on diagnostic imaging of other abdominal regions, including retroperitoneum Category: Medical Plan: Discussed with the patient the results the pathology and the fact that it does not explain the finding on ultrasound thickened endometrium with endometrial fluid, recommended hysteroscopy D&C possible polypectomy/myomectomy. Discussed with the patient the procedure , all benefits and risks including but not limited to inability to complete the procedure , insufficient endometrial tissue for a complete evaluation of the endometrial cavity , bleeding, infection, possible need for blood transfusion with all its risk ( HIV,syphilis, Hepatitis, anaphylaxis shock, others..), injury to bladder, rectum, possible need for laparoscopy/laparotomy or hysterectomy. The patient verbalized understanding and signed the consent. Instructions given the patient to stay NPO after midnight the day prior to the procedure and to take only the specific medication (s) discussed the morning of the surgical procedure and to schedule a 2 week postoperative appointment Coding Level of Care Code Est Pt Level 3 (60943) Diagnoses Abnormal ultrasound of endometrium R93.5
== END 2024-02-04 14:58 | disposition home or self-care (01) ==
PROVIDERS: PCP Physician Assistant; Visit Provider Obstetrics & Gynecology
DX: R93.5 Abnormal findings on diagnostic imaging of other abdominal regions, including retroperitoneum (principal)
CPT/HCPCS: 99213

== ENCOUNTER → 2024-02-04 14:06 | Outpatient (BNVA) | payer OTHER, SELFPAY | PROVIDERS: PCP Physician Assistant; Visit Provider Obstetrics & Gynecology ==

== ENCOUNTER 2024-02-26 11:03 | Outpatient (AMB) | payer OTHER, SELFPAY ==
--- NOTE | 2024-02-26 11:05 | MHC.OFFVIS ---
Vital Signs 02/26/24 11:09 Height 5 ft 6 in Weight 192 lb 0.362 oz BMI 31.0 BP 132/70 Blood Pressure Location Rt brachial Position Sitting Pulse 72 Pulse Source Pulse Oximeter Pulse Oximetry (%) 98 Oxygen Delivery Method Room Air Intake Visit Reasons: BL hand pain/CM Intake Note: Patient presents for BL hand pain. Allergies No Known Allergies [No Known Allergies*] Allergy (Verified 02/26/24 11:08) Medication List - Last Reconciled 02/26/24 by Lizette Erwin MD cholecalciferol (vitamin D3) 1,250 mcg PO QWEEK clonazepam 0.5 mg PO BEDTIME 7 days diclofenac sodium 1% 4 grams topical QID fluoxetine 20 mg PO DAILY 90 days meloxicam 15 mg PO DAILY 30 days HPI Comments Details: Patient is a 53-year-old female with depression who presents for evaluation of bilateral hand pain in the setting of a positive KELLY. For the past 2 years she has been noticing pain in her bilateral hands that has been progressively worse. L>R. right handed PT done in the past. 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 Denies preeclampsia PFSH Medical History (Updated 02/26/24 @ 11:53 by Lizette Erwin MD) Osteoarthritis of hands, bilateral Well woman exam Perimenopause Colon cancer screening Bulky or enlarged uterus Annual physical exam Screening for hypothyroidism Screening for hypercholesterolemia Screening for diabetes mellitus (DM) Screening breast examination Well woman exam with routine gynecological exam Excessive bleeding in the premenopausal period Depressed Anxiety Surgical History History of colonoscopy History of endometrial ablation Hx of tubal ligation Family History Father Hypertension Mother Hypertension Maternal Uncle Colon cancer Social History Housing: House Alcohol intake: never Patient Tobacco Use Status: Never used Tobacco e-Cigarette/Vaping Use: Never Used Second Hand Smoke Exposure: No service: No Current occupational status: employed 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 Current occupational exposures/hazards: No Gender identity: Female Cognitive needs: No Hearing needs: No Vision needs: Yes Female Reproductive History Menstrual Age of Menarche: 12 Review of Systems Const Details: Review of Systems Constitutional: Denies fever, chills, weight loss ENT: Denies vision changes, eye pain or eye redness, dental caries, dry mouth GI: Denies nausea, vomiting, diarrhea, abdominal pain, change in BM Pulm: Denies SOB, MANUEL, hemoptysis, wheezing Cards: Denies chest pain, palpitations Skin: Denies Raynaud's, rash, nail changes, photosensitivity, TIMING MACHINE OPERATOR: Denies headaches, weakness, paresthesias, recurrent falls MSK: as per HPI All other systems reviewed and are unremarkable except noted above Physical Exam Vital Signs: Last Vital Signs Pulse 72 02/26/24 11:09 BP 132/70 02/26/24 11:09 Pulse Ox 98 02/26/24 11:09 Oxygen Delivery Method Room Air 02/26/24 11:09 BMI result Body Mass Index 31.0 Physical Examination CONSTITUITIONAL Patient alert and cooperative. Well appearing and in no apparent painful distress HEENT Conjunctiva and sclera clear. ?Pupils equal round and reactive to light. ?No lymphadenopathy. ?Normal dentition. No oral or nasal ulcers noted. No evidence of discoid rash to the blanca of ears CHEST/RESPIRATORY SYSTEM Normal respiratory effort and able to speak in complete sentences. ?Clear to auscultation bilaterally. ?No crackles, rales, rhonchi, wheezes heard. CARDIAC SYSTEM Regular rate and rhythm. ?S1 and S2 heard no murmurs. ?Radial pulses intact bilaterally MSK Hands: ?Good car clerk pullman strength bilaterally - 5/5. ?Positive CMC grind test bilaterally.. ?No synovitis noted to the MCPs, PIPs or DIPs. ?Heberden's nodes noted to the PIPs. Wrists: ?Full range of motion at the wrists without pain. ?No tenderness to palpation or synovitis noted to the wrists. Elbows: Full range of motion without pain. No tenderness, weakness, swelling, increased warmth or erythema. Shoulders: Full range of motion without pain. No tenderness, weakness, swelling, increased warmth or erythema. Hips: Full range of motion without pain. Hip bursa: No tenderness to palpation Knees: ?Full range of motion. ?No tenderness, swelling, increased warmth or erythema.?No effusion or crepitations Ankles: Full range of motion. ?No tenderness, swelling, increased warmth or erythema.? Feet: ?Negative squeeze test. ?No tenderness to palpation or swelling of the MTPs. Tender points:??No tenderness to palpation of the neck, shoulders, chest, elbows, hips, buttocks or knees. SKIN Skin intact without rashes. Results Reviewed Results Reviewed: Hand x-ray 11/2023 FINDINGS: RIGHT HAND: Moderate osteoarthritis of the 1st CMC joint with joint space narrowing and marginal osteophytes. More minimal osteoarthritis in multiple interphalangeal joints. Soft tissue swelling at the 1st CMC joint. No erosions. No fracture or malalignment. LEFT HAND: Moderate osteoarthritis at the 1st CMC joint with joint space narrowing and marginal osteophytes. More mild osteoarthritis in multiple interphalangeal joints. MCP joints appear well-preserved. No erosions. Bone mineralization is normal. No fracture or malalignment. Laboratory Tests 08/29/22 09/12/22 08/24/23 07:21 08:47 09:18 WBC 3.5 L 4.4 L RBC 4.25 4.32 Hgb 12.3 12.7 Hct 37.7 38.9 Plt Count 273 259 Sodium 144 141 Potassium 4.7 4.1 Chloride 110 H 106 Carbon Dioxide 28 28 BUN 14 7 L Creatinine 0.70 0.69 25-OH Vitamin D Total 41.8 Rheumatoid Factor Cycl Citrul Peptide IgG KELLY Screen KELLY Titer KELLY Titer 2 KELLY Pattern KELLY Pattern 2 12/16/23 12:25 WBC RBC Hgb Hct Plt Count Sodium Potassium Chloride Carbon Dioxide BUN Creatinine 25-OH Vitamin D Total Rheumatoid Factor < 13.0 Cycl Citrul Peptide IgG <16 KELLY Screen POSITIVE A KELLY Titer 1:320 H KELLY Titer 2 1:80 H KELLY Pattern Nuclear, Centromere A KELLY Pattern 2 A Assessment & Plan Assessment & Plan (1) Osteoarthritis of hands, bilateral: Code(s): M19.041 - Primary osteoarthritis, right hand; M19.042 - Primary osteoarthritis, left hand Category: Medical Qualifiers: Osteoarthritis type: primary Qualified Code(s): M19.041 - Primary osteoarthritis, right hand; M19.042 - Primary osteoarthritis, left hand Plan: #Hand OA History and exam is consistent with hand osteoarthritis and this is confirmed with the x-rays showing bilateral 1st CMC arthritis. Discussed the diagnosis with patient. We will try topical diclofenac to be used up to 4 times a day and a printout given for CMC splinting to be worn during the day. We will also send to OT We will review efficacy treatment and consider Celebrex at next visit. (2) Positive KELLY (antinuclear antibody): Code(s): R76.8 - Other specified abnormal immunological findings in serum Category: Medical Plan: #Positive KELLY The presence of antinuclear antibodies (KELLY) is mainly associated with connective tissue diseases (CTD). ?However, their presence is found in healthy people especially in women and patients >65. ?In healthy individuals, the frequency of KELLY has been shown to be 31.7% of individuals at 1:40 serum dilution, 13.3% at 1:80, 5.0% at 1:160, and 3.3% at 1:320 (2). Some drugs and xenobiotics are also important for the development of KELLY (hydralazine, hydrochlorothiazide, minocycline, terbinafine, ciprofloxacin, furosemide, omeprazole). Moreover, the deficiency of vitamin D in the body of patients correlates with occurrence of these antibodies (1). At this time there is low suspicion for a connective tissue disease. ? 1. Tiff?fredi Roberts, Roberta Spivey, Ronan Haynes. Antinuclear antibodies in healthy people and non-rheumatic diseases - diagnostic and clinical implications. Reumatologia. 2018;56(4):243-248. doi: 10.5114/reum.2018.88954. Epub 2017Dec 25. PMID: 11616189; PMCID: [id number]. 2. Sauceda EM, Keven TE, Willy JS, Tr B, Keyona R, Oscar MJ, Rene T, Víctor JA, Edd JR, Irene RG, Ruba RN, Noreen JS, Christine NF, Ned RJ, Lam Y, Suzi A, Jerome MR, Severiano GOMEZ. Range of antinuclear antibodies in healthy individuals. Arthritis Rheum. 1996;40(9):1601-11. doi: 10.1002/art.5328108375. PMID: 9616796. Plan I spent 20 minutes reviewing the record and labs, seeing the patient, discussing the treatment plan and documenting in the medical record ? Orders: Orders OT Evaluation and Treatment Today M19.041 - Primary osteoarthritis, right hand, M19.042 - Primary osteoarthritis, left hand Medications: New diclofenac sodium 1% apply to hands up to 4 times a day 4 grams topical QID 100 grams 4RF M19.041 - Primary osteoarthritis, right hand, M19.042 - Primary osteoarthritis, left hand Coding Level of Care Code New Pt Level 4 (40149) Diagnoses Primary osteoarthritis of both hands M19.041; M19.042 Osteoarthritis type: primary Positive KELLY (antinuclear antibody) R76.8
[2024-02-26 11:09] VITALS: BP 132/70; PULSE 72; O2SAT 98; BMI 31.0
== END 2024-02-26 11:45 | disposition home or self-care (01) ==
LOC: HO.RHE 11:04
PROVIDERS: PCP Physician Assistant; Visit Provider Student in an Organized Health Care Education/Training Program
DX: M19.041 Primary osteoarthritis, right hand (principal); M19.042 Primary osteoarthritis, left hand; R76.8 Other specified abnormal immunological findings in serum
CPT/HCPCS: 99204

== ENCOUNTER → 2024-02-26 11:03 | Outpatient (BNVA) | payer OTHER, SELFPAY | PROVIDERS: PCP Physician Assistant; Visit Provider Student in an Organized Health Care Education/Training Program ==

== ENCOUNTER 2024-03-04 08:10 | Day surgery (SDC) | payer OTHER, SELFPAY ==
--- NOTE | 2024-03-02 14:02 | HO.ANESPROP2 ---
Documented by User: Julia Rondon NP 03/02/24 14:02 HPI - Anesthesia Eval Consult details Narrative: 53yo F for D&C Hysteroscopy,possible myomectomy,possible polypectomy PMFSH Active Problems Active Problems: All Active Problems Osteoarthritis of hands, bilateral (Acute) Abnormal ultrasound of endometrium (Acute) Positive KELLY (antinuclear antibody) (Acute) Uterine myoma (Acute) Well woman exam (Acute) Pre-op examination (Acute) Menopause (Acute) Enlarged uterus (Acute) Hyperkalemia (Acute) Bilateral hand pain (Acute) Urinary frequency (Acute) Low vitamin D level (Acute) Dizziness (Acute) Abnormal uterine bleeding (AUB) (Acute) Myoma (Acute) Anemia (Acute) BIRGIT (generalized anxiety disorder) (Acute) MDD (major depressive disorder), recurrent episode, moderate (Acute) Breast mass, right (Acute) Past Medical History Medical History (Updated 02/26/24 @ 11:53 by iLzette Erwin MD) Osteoarthritis of hands, bilateral Colon cancer screening Well woman exam Annual physical exam Screening for hypothyroidism Screening for hypercholesterolemia Screening for diabetes mellitus (DM) Screening breast examination Perimenopause Bulky or enlarged uterus Well woman exam with routine gynecological exam Excessive bleeding in the premenopausal period Depressed Anxiety Family History Family History Father Hypertension Mother Hypertension Maternal Uncle Colon cancer Family history of problems with anesthesia: No Surgical History Surgical History (Updated 03/02/24 @ 14:18 by Marylou Macario RN) Hx of dilation and curettage (~2021) History of colonoscopy History of endometrial ablation Hx of tubal ligation History of Problems with Anesthesia: No Social History Social History Housing: House Are you a primary health care marketing manager to a significant other at home: No Do you presently have visiting nurse or other home services: No Alcohol intake: never Patient Tobacco Use Status: Never used Tobacco e-Cigarette/Vaping Use: Never Used Second Hand Smoke Exposure: No Use of substances other than those prescribed or required for medical reasons: No Have you been hit, kicked, punched, or otherwise hurt by someone within the past year? 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 Current occupational exposures/hazards: No Gender identity: Female Cognitive needs: No Hearing needs: No Vision needs: Yes Meds Allergies Allergy/AdvReac Type Severity Reaction Status Date / Time No Known Allergies Allergy Verified 03/04/24 08:40 [No Known Allergies*] Assessment and Plan Assessment Anesthesia Assessment: Chart Reviewed Final Anesthetic Review Family History of Problems with Anesthesia: No History of Problems with Anesthesia: No Documented by User: Morales Tay MD 03/04/24 09:22 PMFSH Past Medical History Medical History (Updated 02/26/24 @ 11:53 by Lizette Erwin MD) Osteoarthritis of hands, bilateral Colon cancer screening Well woman exam Annual physical exam Screening for hypothyroidism Screening for hypercholesterolemia Screening for diabetes mellitus (DM) Screening breast examination Perimenopause Bulky or enlarged uterus Well woman exam with routine gynecological exam Excessive bleeding in the premenopausal period Depressed Anxiety Patient : No Family History Family History Father Hypertension Mother Hypertension Maternal Uncle Colon cancer Surgical History Surgical History (Updated 03/02/24 @ 14:18 by Marylou Macario RN) Hx of dilation and curettage (~2021) History of colonoscopy History of endometrial ablation Hx of tubal ligation Social History Social History Housing: House Are you a primary health care marketing manager to a significant other at home: No Do you presently have visiting nurse or other home services: No Alcohol intake: never Patient Tobacco Use Status: Never used Tobacco e-Cigarette/Vaping Use: Never Used Second Hand Smoke Exposure: No Use of substances other than those prescribed or required for medical reasons: No Have you been hit, kicked, punched, or otherwise hurt by someone within the past year? 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 Current occupational exposures/hazards: No Gender identity: Female Cognitive needs: No Hearing needs: No Vision needs: Yes Meds Allergies Allergy/AdvReac Type Severity Reaction Status Date / Time No Known Allergies Allergy Verified 03/04/24 08:40 [No Known Allergies*] Exam Airway Mallampati Class: I TM Dist: >3cm Neck ROM: Full Loose/Missing/Broken Teeth: No Heart: ok Lungs: ok Assessment and Plan Assessment Anesthesia Assessment: Anesthesia Plan Discussed Final Anesthetic Review NPO: Yes ASA Class: II Final Preanesthetic Review: No Changes in Pt Med Stat, Meds/Allgs Chart Reviewed, Consent Obtained/Reviewed and Anes Risks/Benef Reviewed Patient Risk: Low Procedure Risk: Low Anesthetic Plan Anesthetic Plan: GA and Agree w/ Assess. and Plan Disposition: Standard PACU
[2024-03-02 14:16] VITALS: BMI 31.0
[2024-03-04 08:42] VITALS: BP 136/74; PULSE 68; RESP 14; TEMP 36.3; O2SAT 98; BMI 30.7
[2024-03-04 08:59] LABS: UPreg QC Valid YES; Urine Pregnancy NEGATIVE (NEGATIVE)
[2024-03-04] MEDS: Lactated Ringers 1,000 ML 100 ML IVCONT (09:05)
--- NOTE | 2024-03-04 09:08 | MHC.SHP ---
Pre-Procedural Eval Section A - 24 Hr Update-Section A only Date of Service: 03/04/24 The patient is an INPATIENT: No Changes since office visit: No Cold of Flu in the past 2 weeks, No New Medical Problems, No Changes in Medication and No Patient answered all questions The patient has been examined within 24 hours of the surgical procedure. The History & Physical has been completed within 30 days and I have reviewed it.: Yes Section B - Complete if H&P > 30 days Chief Complaint: Abnormal findings on diagnostic imaging of other Allergies: Allergies Allergy/AdvReac Type Severity Reaction Status Date / Time No Known Allergies Allergy Verified 03/04/24 08:40 [No Known Allergies*] Plan Diagnosis/Plan: Unchanged I have reviewed the history and physical and performed a pertinent physical examination on my patient. No changes have occurred unless specified. Time Spent With Patient Time: Total time managing care of this patient today ____ minutes.
[2024-03-04 10:07] VITALS: BP 115/66; PULSE 70; RESP 16; TEMP 36.6; O2SAT 97
--- NOTE | 2024-03-04 10:09 | P.OP_ITS ---
Operative Note Operative Note Date of Service: 03/04/24 Narrative: Preop Diagnosis: Abnormal endometrium by US Operation: Diagnostic Hysteroscopy, Dilataion & Curettage and polypectomy Post Op Diagnosis: Endometrial Polyp QBL: Minimal Anesthesia: GLMA Surgeon: Nabeel Gomez MD Patient Monitor: None Complication: None Pathology: Endometrial Scrapings, Endometrial polyp Procedure: The patient was put in the dorsal lithotomy position, scrubbed, and draped in the usual manner. A sterile speculum was inserted in the patient's vagina. The anterior lip of the cervix was grasped with a single tooth tenaculum. The cervix was dilated up to 5 mm, then the scope was inserted in the patient's uterus. Inspection revealed endometrial polyp. The Myosure Reach device was used; it was introduced through the operative channel and polypectomy done with no complications. The scope was then taken out from the uterine cavity, sharp curettings was carried on with minimal to moderate amount of tissues retrieved. At the end of the procedure, all instruments were taken out of the patient uterine and vaginal cavity. The single tooth tenaculum was removed and homeostasis was assured using pressure,. The patient tolerated the procedure well and was transferred to the PACU in a stable condition.
--- NOTE | 2024-03-04 10:09 | PM.OP ---
Brief Operative Note Date of Service: 03/04/24 Pre-op diagnosis: Abnormal endometrium by ultrasound Post-op diagnosis: same Procedure: Hysteroscopy D&C, Polypectomy Surgeon: Nabeel Gomez MD Anesthesia: GLMA Was an Retail Training Manager used for this Procedure?: No Estimated blood loss (mL): 0 Pathology: other (Endometrial Scrapping. Polyp) Condition: stable Disposition: PACU
[2024-03-04 10:12] VITALS: BP 126/74; PULSE 58; RESP 16; O2SAT 97
[2024-03-04 10:17] VITALS: BP 133/63; PULSE 55; RESP 16; O2SAT 97
[2024-03-04 10:22] VITALS: BP 122/73; PULSE 57; RESP 16; O2SAT 98
[2024-03-04 10:37] VITALS: BP 119/76; PULSE 66; RESP 16; TEMP 36.6; O2SAT 99
== END 2024-03-04 11:03 | disposition home or self-care (01) ==
PROVIDERS: PCP Physician Assistant; Visit Provider Obstetrics & Gynecology
PROC: 0UDB8ZZ Extraction of Endometrium, Via Natural or Artificial Opening Endoscopic (ICD-10-PCS; CPT 58558; principal; 2024-03-04 09:30)
DX: N84.0 Polyp of corpus uteri (principal); N88.8 Other specified noninflammatory disorders of cervix uteri; F32.A Depression, unspecified; F41.9 Anxiety disorder, unspecified; Z79.899 Other long term (current) drug therapy; Z98.51 Tubal ligation status
CPT/HCPCS: 58558; 81025; 88305; J1885; J2003; J2405; J2704; J3010

== ENCOUNTER → 2024-03-04 08:10 | Outpatient (BNV) | payer OTHER, SELFPAY | PROVIDERS: PCP Physician Assistant; Visit Provider Obstetrics & Gynecology | DX: N84.0 Polyp of corpus uteri (principal); R93.5 Abnormal findings on diagnostic imaging of other abdominal regions, including retroperitoneum | CPT/HCPCS: 58558 ==

== ENCOUNTER 2024-03-16 13:51 | Outpatient (AMB) | payer OTHER, SELFPAY ==
--- NOTE | 2024-03-16 13:51 | A.OFFVIS_ITS ---
Intake Visit Reasons: post op Allergies No Known Allergies [No Known Allergies*] Allergy (Verified 03/04/24 08:40) HPI Comments Details: The patient scheduled a telehealth visit post hysteroscopy D&C no complaints minimal vaginal bleeding no feverishness chills or abdominal pain. The pathology showed the following: A. Endometrial polyp, resection: Fragments consistent with benign endometrial polyp; no atypia or carcinoma. B. Endometrium, curettage: Superficial fragments of benign atrophic endometrium, and scant benign endocervical glandular epithelium; no atypia or carcinoma PFSH Medical History Osteoarthritis of hands, bilateral Colon cancer screening Well woman exam Annual physical exam Screening for hypothyroidism Screening for hypercholesterolemia Screening for diabetes mellitus (DM) Screening breast examination Perimenopause Bulky or enlarged uterus Well woman exam with routine gynecological exam Excessive bleeding in the premenopausal period Depressed Anxiety Surgical History Hx of dilation and curettage (~2021) History of colonoscopy History of endometrial ablation Hx of tubal ligation Family History Father Hypertension Mother Hypertension Maternal Uncle Colon cancer Social History Housing: House Are you a primary critical care specialist to a significant other at home: No Do you presently have visiting nurse or other home services: No Alcohol intake: never Patient Tobacco Use Status: Never used Tobacco e-Cigarette/Vaping Use: Never Used Second Hand Smoke Exposure: No service: No Current occupational status: employed 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 Current occupational exposures/hazards: No Gender identity: Female Cognitive needs: No Hearing needs: No Vision needs: Yes Female Reproductive History Menstrual Age of Menarche: 12 Review of Systems Const All systems reviewed & are unremarkable except as noted in HPI and below Reports as per HPI and Reports no additional complaints GI Reports no additional complaints Reports no additional complaints Telehealth Telehealth Telehealth Platform: Telephone Location of provider rendering services: practice address Location of patient: address on file Patient Identification confirmed using: Name, : Yes Telehealth method: video Patient verbally consented to treatment: Yes Patient verbally consented to billing insurance company: Yes Patient informed of any privacy concerns related to visit: Yes Assessment & Plan Assessment & Plan (1) Abnormal ultrasound of endometrium: Comment: Endometrial fluid with 14 mm endometrial stripe status post hysteroscopic polypectomy Code(s): R93.5 - Abnormal findings on diagnostic imaging of other abdominal regions, including retroperitoneum Category: Medical Plan: Discussed with the patient the results of the pathology in the intraoperative finding. Discussed with the patient the sensitivity, specificity, positive and negative predictive value, of endometrial biopsy in detecting endometrial pathology including but not limited to endometrial hyperplasia, cancer and other pathology; instructed the patient to call in case vaginal bleeding bleeding recurs, the next step will be to proceed with further endometrial sampling ev aluation to rule out endometrial pathology. All questions answered and the patient verbalized understanding and agreed with the plan. I spent a total of 20 minutes reviewing the chart, talking to the patient via video and documenting in the medical record. Coding Level of Care Code Tele Est Pt Level 3 (60285) Diagnoses Abnormal ultrasound of endometrium R93.5
== END 2024-03-16 14:04 | disposition home or self-care (01) ==
LOC: HO.HWS 13:51
PROVIDERS: PCP Physician Assistant; Visit Provider Obstetrics & Gynecology
DX: R93.5 Abnormal findings on diagnostic imaging of other abdominal regions, including retroperitoneum (principal)
CPT/HCPCS: 99213

== ENCOUNTER → 2024-03-16 13:51 | Outpatient (BNVA) | payer OTHER, SELFPAY | PROVIDERS: PCP Physician Assistant; Visit Provider Obstetrics & Gynecology ==

== ENCOUNTER 2024-03-31 06:43 | Day surgery (SDC) | payer OTHER, SELFPAY ==
--- NOTE | 2024-03-30 10:20 | P.CONAN_ITS ---
Documented by User: Julia Rondon NP 03/30/24 10:21 HPI - Anesthesia Eval Consult details Narrative: 53yo F for Colonoscopy PMFSH Active Problems Active Problems: All Active Problems Abnormal ultrasound of endometrium (Acute) Positive KELLY (antinuclear antibody) (Acute) Uterine myoma (Acute) Pre-op examination (Acute) Menopause (Acute) Enlarged uterus (Acute) Hyperkalemia (Acute) Bilateral hand pain (Acute) Urinary frequency (Acute) Low vitamin D level (Acute) Dizziness (Acute) Abnormal uterine bleeding (AUB) (Acute) Myoma (Acute) Anemia (Acute) BIRGIT (generalized anxiety disorder) (Acute) MDD (major depressive disorder), recurrent episode, moderate (Acute) Breast mass, right (Acute) Osteoarthritis of hands, bilateral (Acute) Well woman exam (Acute) Past Medical History Medical History Osteoarthritis of hands, bilateral Colon cancer screening Well woman exam Annual physical exam Screening for hypothyroidism Screening for hypercholesterolemia Screening for diabetes mellitus (DM) Screening breast examination Perimenopause Bulky or enlarged uterus Well woman exam with routine gynecological exam Excessive bleeding in the premenopausal period Depressed Anxiety Family History Family History Father Hypertension Mother Hypertension Maternal Uncle Colon cancer Family history of problems with anesthesia: No Surgical History Surgical History Hx of dilation and curettage (~2021) History of colonoscopy History of endometrial ablation Hx of tubal ligation History of Problems with Anesthesia: No Social History Social History Housing: House Are you a primary career services representative to a significant other at home: No Do you presently have visiting nurse or other home services: No Alcohol intake: never Patient Tobacco Use Status: Never used Tobacco e-Cigarette/Vaping Use: Never Used Second Hand Smoke Exposure: No Have you been hit, kicked, punched, or otherwise hurt by someone within the past year? 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 Current occupational exposures/hazards: No Gender identity: Female Cognitive needs: No Hearing needs: No Vision needs: Yes Meds Allergies Allergy/AdvReac Type Severity Reaction Status Date / Time No Known Allergies Allergy Verified 03/04/24 08:40 [No Known Allergies*] Exam Height,Weight and Vital Signs: Height 5 ft 6 in Weight 84.368 kg Assessment and Plan Assessment Anesthesia Assessment: Chart Reviewed Final Anesthetic Review Family History of Problems with Anesthesia: No History of Problems with Anesthesia: No Documented by User: Morales Tay MD 03/31/24 08:45 PMFSH Past Medical History Medical History Osteoarthritis of hands, bilateral Colon cancer screening Well woman exam Annual physical exam Screening for hypothyroidism Screening for hypercholesterolemia Screening for diabetes mellitus (DM) Screening breast examination Perimenopause Bulky or enlarged uterus Well woman exam with routine gynecological exam Excessive bleeding in the premenopausal period Depressed Anxiety Family History Family History Father Hypertension Mother Hypertension Maternal Uncle Colon cancer Surgical History Surgical History Hx of dilation and curettage (~2021) History of colonoscopy History of endometrial ablation Hx of tubal ligation Social History Social History Housing: House Are you a primary career services representative to a significant other at home: No Do you presently have visiting nurse or other home services: No Alcohol intake: never Patient Tobacco Use Status: Never used Tobacco e-Cigarette/Vaping Use: Never Used Second Hand Smoke Exposure: No Have you been hit, kicked, punched, or otherwise hurt by someone within the past year? 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 Current occupational exposures/hazards: No Gender identity: Female Cognitive needs: No Hearing needs: No Vision needs: Yes Meds Allergies Allergy/AdvReac Type Severity Reaction Status Date / Time No Known Allergies Allergy Verified 03/04/24 08:40 [No Known Allergies*] Exam Airway Mallampati Class: II TM Dist: >3cm Neck ROM: Full Loose/Missing/Broken Teeth: No Heart: ok Lungs: ok Assessment and Plan Assessment Anesthesia Assessment: Anesthesia Plan Discussed Final Anesthetic Review NPO: Yes ASA Class: II Final Preanesthetic Review: No Changes in Pt Med Stat, Meds/Allgs Chart Reviewed, Consent Obtained/Reviewed and Anes Risks/Benef Reviewed Patient Risk: Low Procedure Risk: Low Anesthetic Plan Anesthetic Plan: MAC: and Agree w/ Assess. and Plan Disposition: Standard PACU
[2024-03-31 06:46] VITALS: BP 142/67; PULSE 83; RESP 18; TEMP 36.9; O2SAT 97
[2024-03-31] MEDS: Lactated Ringers 1,000 ML 100 ML IVCONT (07:05)
--- NOTE | 2024-03-31 07:56 | P.HPSUR_ITS ---
Pre-Procedural Eval Section A - 24 Hr Update-Section A only Date of Service: 03/31/24 Section B - Complete if H&P > 30 days Chief Complaint: screening Relevant Family History (Specify if Yes): Yes Relevant Social History: None Present Medications: see Short Stay Collaborative assessment Medical History: Significant History ( Osteoarthritis of hands, bilateral Colon cancer screening Well woman exam Annual physical exam Screening for hypothyroidism Screening for hypercholesterolemia Screening for diabetes mellitus (DM) Screening breast examination Perimenopause Bulky or enlarged uterus Well woman exam with routine gyneco) History of Previous Operations: Relevant previous surgery/procedure and date(s) (Hx of dilation and curettage (~2021) History of colonoscopy History of e ndometrial ablation Hx of tubal ligation) Allergies: Allergies Allergy/AdvReac Type Severity Reaction Status Date / Time No Known Allergies Allergy Verified 03/04/24 08:40 [No Known Allergies*] Review of Systems Sugical H&P ROS: Negative: Constitution, Cardiovascular, Respiratory, Neurological, Psychiatric, Hem-Onc, Allergic/Immunologic, Gastrointestinal, Genitourinary, Musculoskeletal, Integumentary, Endocrine and Eyes/Ears/Nose/Throat Exam Surgical H&P Exam: Normal: HEENT, Normal: Heart, Normal: Lungs, Normal: Extremities, Normal: Abdomen, Normal: Skin and Normal: Neurological Plan Diagnosis/Plan: Unchanged I have reviewed the history and physical and performed a pertinent physical examination on my patient. No changes have occurred unless specified. Time Spent With Patient Time: Total time managing care of this patient today ____ minutes.
--- NOTE | 2024-03-31 09:04 | HO.OPN-COLON ---
Colonoscopy Operative Note Operative Note Date of Service: 03/31/24 Narrative: Operative Information Procedure Description: Colonoscopy Indication: screening Anesthesia: MAC COLONOSCOPY Instrument: Olympus variable stiffness pediatric scope 190L Colonoscopy Monitoring: Vital signs and clinical assessment, continuous EKG monitoring, Pulse oximetry, Carbon Dioxide monitoring and blood pressure monitoring were done throughout the procedure. Colon withdrawal time was 10 minutes. Procedure: The patient was placed in the left lateral decubitis position and pre-procedure medications were administered. After a digital rectal examination of the ano-rectum, the video colonoscope was inserted into the rectum and advanced through the colon to the cecum/TI. The colonoscope was slowly withdrawn in a retrograde panoramic fashion and the colon mucosa was carefully examined including a retroflexed view of the rectum. Findings and interventions are described below. Procedure Difficulty: easy Findings: Terminal Ileum-normal Cecum:normal right sided retroflexion- normal Ascending Colon: normal Transverse Colon - 6-7 mm sessile polyp removed with cold snare Descending Colon:normal Sigmoid Colon: normal Rectum: Retroflexion with small internal hemorrhoids seen, grade I Anorectum - normal Intervention: cold snare Colon preparation: Mccomb Bowel Preparation Scale Right colon; 2 Transverse colon: 2 Left colon; 2 (0 = Unprepared colon segment with mucosa not seen due to solid stool that cannot be cleared. 1 = Portion of mucosa of the colon segment seen, but other areas of the colon segment not well seen due to staining, residual stool and/or opaque liquid. 2 = Minor amount of residual staining, small fragments of stool and/or opaque liquid, but mucosa of colon segment seen well. 3 = Entire mucosa of colon segment seen well with no residual staining, small fragments of stool or opaque liquid) Impression and Post Procedure Diagnosis: colon polyp internal hemorrhoids Plan: High fiber diet leaflet Avoid straining at stool, epsom salts and sitz bath, anusol supps or cream Repeat Colonoscopy in 5-7 yrs due to polyp or earlier if clinically indicated Above findings were reviewed with the patient and relevant handouts were provided if indicated.
[2024-03-31 09:12] VITALS: BP 100/60; PULSE 83; RESP 18; TEMP 36.2; O2SAT 100
[2024-03-31 09:33] VITALS: BP 134/69; PULSE 66; RESP 17; TEMP 36.1; O2SAT 100
== END 2024-03-31 10:04 | disposition home or self-care (01) ==
PROVIDERS: PCP Physician Assistant; Visit Provider Internal Medicine Gastroenterology
PROC: 0DJD8ZZ Inspection of Lower Intestinal Tract, Via Natural or Artificial Opening Endoscopic (ICD-10-PCS; CPT 45378; principal; 2024-03-31 08:20)
DX: Z12.11 Encounter for screening for malignant neoplasm of colon (principal); K63.5 Polyp of colon; K64.0 First degree hemorrhoids; D64.9 Anemia, unspecified; Z79.899 Other long term (current) drug therapy
CPT/HCPCS: 45385; 88305; J0171; J2003; J2704

== ENCOUNTER → 2024-03-31 06:43 | Outpatient (BNV) | payer OTHER, SELFPAY | PROVIDERS: PCP Physician Assistant; Visit Provider Internal Medicine Gastroenterology | DX: Z12.11 Encounter for screening for malignant neoplasm of colon (principal); K63.5 Polyp of colon; K64.0 First degree hemorrhoids | CPT/HCPCS: 45385 ==

== ENCOUNTER 2024-08-26 09:52 | Outpatient (AMB) | payer BC, SELFPAY ==
--- NOTE | 2024-08-26 10:08 | A.OFFVIS_ITS ---
Vital Signs 08/26/24 10:17 Height 5 ft 6 in Weight 186 lb 4.65 oz BMI 30.1 BP 118/72 Blood Pressure Location Lt brachial Position Sitting Pulse 64 Pulse Source Pulse Oximeter Pulse Oximetry (%) 97 Oxygen Delivery Method Room Air Intake Visit Reasons: follow up Intake Note: Patient presents for follow up on OA. Allergies No Known Allergies [No Known Allergies*] Allergy (Verified 08/26/24 10:20) HPI Comments Details: Patient is a 53-year-old female with depression and polyarticular osteoarthritis especially involving the hands here today for follow up Interval History: Patient last seen 02/26/2024 with me. At that time she was establishing care for the evaluation of bilateral setting positive. Exam, history, and lab values consistent with degenerative joint disease. Recommended conservative measures such as topical diclofenac and CMC splinting Today, She is here for follow up The interventions have been helpful No new complaints Rheumatologic History: Initially came to be evaluated for polyarthralgias in the setting of positive KELLY however exam not consistent with an inflammatory arthritis. Initial history: For the past 2 years she has been noticing pain in her bilateral hands that has been progressively worse. L>R. right handed PT done in the past. 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 Denies preeclampsia Current Rheumatology Medication(s): Topical diclofenac 1% PFSH Medical History Osteoarthritis of hands, bilateral Colon cancer screening Well woman exam Annual physical exam Screening for hypothyroidism Screening for hypercholesterolemia Screening for diabetes mellitus (DM) Screening breast examination Perimenopause Bulky or enlarged uterus Well woman exam with routine gynecological exam Excessive bleeding in the premenopausal period Depressed Anxiety Surgical History Hx of dilation and curettage (~2021) History of colonoscopy History of endometrial ablation Hx of tubal ligation Family History Father Hypertension Mother Hypertension Maternal Uncle Colon cancer Social History Housing: House Are you a primary personal care assistant to a significant other at home: No Do you presently have visiting nurse or other home services: No Alcohol intake: never Patient Tobacco Use Status: Never used Tobacco e-Cigarette/Vaping Use: Never Used Second Hand Smoke Exposure: No service: No Current occupational status: employed 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 Current occupational exposures/hazards: No Gender identity: Female Cognitive needs: No Hearing needs: No Vision needs: Yes Female Reproductive History Menstrual Age of Menarche: 12 Review of Systems Const Details: Review of Systems Constitutional: Denies fever, chills, weight loss ENT: Denies vision changes, eye pain or eye redness, dental caries, dry mouth GI: Denies nausea, vomiting, diarrhea, abdominal pain, change in BM Pulm: Denies SOB, MANUEL, hemoptysis, wheezing Cards: Denies chest pain, palpitations Skin: Denies Raynaud's, rash, nail changes, photosensitivity, AGENCY SALES DIRECTOR: Denies headaches, weakness, paresthesias, recurrent falls MSK: as per HPI All other systems reviewed and are unremarkable except noted above Physical Exam Vital Signs: Last Vital Signs Pulse 64 08/26/24 10:17 BP 118/72 08/26/24 10:17 Pulse Ox 97 08/26/24 10:17 Oxygen Delivery Method Room Air 08/26/24 10:17 BMI result Body Mass Index 30.1 Vital signs reviewed Physical Examination CONSTITUITIONAL Patient alert and cooperative. Well appearing and in no apparent painful distress HEENT Conjunctiva and sclera clear. ?Pupils equal round and reactive to light. ?No lymphadenopathy. ? CHEST/RESPIRATORY SYSTEM Normal respiratory effort and able to speak in complete sentences. ?Clear to auscultation bilaterally. ?No crackles, rales, rhonchi, wheezes heard. CARDIAC SYSTEM Regular rate and rhythm. ?S1 and S2 heard no murmurs. ?Radial pulses intact bilaterally MSK Hands: ?Able to make a fist. No synovitis noted to the MCPs, PIPs or DIPs. ?No tenderness to palpation of these joints. No deformities noted. ? Wrists: ?Full range of motion at the wrists without pain. ?No tenderness to palpation or synovitis noted to the wrists. Elbows: Full range of motion without pain. No tenderness, weakness, swelling, increased warmth or erythema. Shoulders: Full range of active range of motion without pain. No tenderness, weakness, swelling, increased warmth or erythema. Hips: Full range of motion without pain. Hip bursa: No tenderness to palpation Knees: ?Full range of motion. ?No tenderness, swelling, increased warmth or erythema.?No effusion or crepitations Ankles: Full range of motion. ?No tenderness, swelling, increased warmth or erythema.? Feet: ?Negative squeeze test. ?No tenderness to palpation or swelling of the MTPs. Tender points:?No tenderness to palpation of the bilateral trapezius, supraspinatus, greater trochanters, anterior costochondral junctions, bilateral gluteal areas, bilateral suboccipital muscle insertions SKIN Skin intact without rashes. Results Reviewed Results Reviewed: Hand x-ray 11/2023 FINDINGS: RIGHT HAND: Moderate osteoarthritis of the 1st CMC joint with joint space narrowing and marginal osteophytes. More minimal osteoarthritis in multiple interphalangeal joints. Soft tissue swelling at the 1st CMC joint. No erosions. No fracture or malalignment. LEFT HAND: Moderate osteoarthritis at the 1st CMC joint with joint space narrowing and marginal osteophytes. More mild osteoarthritis in multiple interphalangeal joints. MCP joints appear well-preserved. No erosions. Bone mineralization is normal. No fracture or malalignment. Laboratory Tests 08/29/22 09/12/22 08/24/23 07:21 08:47 09:18 WBC 3.5 L 4.4 L RBC 4.25 4.32 Hgb 12.3 12.7 Hct 37.7 38.9 Plt Count 273 259 Sodium 144 141 Potassium 4.7 4.1 Chloride 110 H 106 Carbon Dioxide 28 28 BUN 14 7 L Creatinine 0.70 0.69 25-OH Vitamin D Total 41.8 Rheumatoid Factor Cycl Citrul Peptide IgG EKLLY Screen KELLY Titer KELLY Titer 2 KELLY Pattern KELLY Pattern 2 12/16/23 12:25 WBC RBC Hgb Hct Plt Count Sodium Potassium Chloride Carbon Dioxide BUN Creatinine 25-OH Vitamin D Total Rheumatoid Factor < 13.0 Cycl Citrul Peptide IgG <16 KELLY Screen POSITIVE A KELLY Titer 1:320 H KELLY Titer 2 1:80 H KELLY Pattern Nuclear, Centromere A KELLY Pattern 2 A Assessment & Plan Assessment & Plan (1) Osteoarthritis of hands, bilateral: Code(s): M19.041 - Primary osteoarthritis, right hand; M19.042 - Primary osteoarthritis, left hand Category: Medical Qualifiers: Osteoarthritis type: primary Qualified Code(s): M19.041 - Primary osteoarthritis, right hand; M19.042 - Primary osteoarthritis, left hand Plan: #Hand OA Patient is a 54-year-old female with bilateral hand osteoarthritis here today for follow up. Conservative measures with topical diclofenac and splinting have been met with improvement in her joint pain. We will continue this Plan - Topical diclofenac 1% qid - CMC splinting - Consider CMC joint injections in the future - RTC 1 year (2) Positive KELLY (antinuclear antibody): Code(s): R76.8 - Other specified abnormal immunological findings in serum Category: Medical Plan: #Positive KELLY The presence of antinuclear antibodies (KELLY) is mainly associated with connective tissue diseases (CTD). ?However, their presence is found in healthy people especially in women and patients >65. ?In healthy individuals, the frequency of KELLY has been shown to be 31.7% of individuals at 1:40 serum dilution, 13.3% at 1:80, 5.0% at 1:160, and 3.3% at 1:320 (2). Some drugs and xenobiotics are also important for the development of KELLY (hydralazine, hydrochlorothiazide, minocycline, terbinafine, ciprofloxacin, furosemide, omeprazole). Moreover, the deficiency of vitamin D in the body of patients correlates with occurrence of these antibodies (1). At this time there is low suspicion for a connective tissue disease. ? 1. Tiff?fredi Roberts, Roberta Spivey, Ronan Haynes. Antinuclear antibodies in healthy people and non-rheumatic diseases - diagnostic and clinical implications. Reumatologia. 2018;56(4):243-248. doi: 10.5114/reum.2018.15589. Epub 2017Dec 25. PMID: [id number]; PMCID: [id number]. 2. Sohail EM, Keven TE, Willy JS, Tr B, Keyona R, Oscar MJ, Rene T, Víctor JA, Edd JR, Irene RG, Ruba JASON, Noreen JS, Christine NF, Ned RJ, Takgabriella Y, Suzi A, Jerome MR, Severiano JA. Range of antinuclear antibodies in healthy individuals. Arthritis Rheum. 1997 Sep;40(9):1601-11. doi: 10.1002/art.[id number]. PMID: 3641422. Plan I spent 20 minutes reviewing the record and labs, seeing the patient, discussing the treatment plan and documenting in the medical record ? Coding Level of Care Code Est Pt Level 3 (06879) Diagnoses Primary osteoarthritis of both hands M19.041; M19.042 Osteoarthritis type: primary Positive KELLY (antinuclear antibody) R76.8
[2024-08-26 10:17] VITALS: BP 118/72; PULSE 64; O2SAT 97; BMI 30.1
== END 2024-08-26 10:32 | disposition home or self-care (01) ==
PROVIDERS: PCP Physician Assistant; Visit Provider Student in an Organized Health Care Education/Training Program
DX: M19.041 Primary osteoarthritis, right hand (principal); M19.042 Primary osteoarthritis, left hand; R76.8 Other specified abnormal immunological findings in serum
CPT/HCPCS: 99213

== ENCOUNTER → 2024-08-26 09:52 | Outpatient (BNVA) | payer BC, SELFPAY | PROVIDERS: PCP Physician Assistant; Visit Provider Student in an Organized Health Care Education/Training Program ==

== ENCOUNTER 2024-08-29 07:51 | Outpatient (AMB) | payer BC, SELFPAY ==
[2024-08-29 07:58] VITALS: BP 122/78; PULSE 69; O2SAT 96
--- NOTE | 2024-08-29 07:58 | A.OFFPC_ITS ---
Vital Signs 08/29/24 07:58 Height 5 ft 6 in Weight 186 lb BMI 30.0 BP 122/78 Blood Pressure Location Lt brachial Position Sitting Pulse 69 Pulse Source Pulse Oximeter Pulse Oximetry (%) 96 Oxygen Delivery Method Room Air Intake Visit Reasons: PHYSICAL Allergies No Known Allergies [No Known Allergies*] Allergy (Verified 08/29/24 08:06) Medication List - Last Reconciled 08/29/24 by Uday Alvarez PA-C cholecalciferol (vitamin D3) 1,250 mcg PO QWEEK clonazepam 0.5 mg PO BEDTIME 7 days fluoxetine 20 mg PO DAILY 90 days Tobacco use date assessed: 08/29/24 Dental Screening Dental Screen Date: 08/29/24 Did you have a dental visit in the last 12 months?: Yes Did you have a dental problem in the last 6 months where you did not have access to dental care?: No Was dental information given to patient?: Patient has dentist HPI PHYSICAL HPI Details Patient is a 54-year-old female here today for routine annual physical. Patient has a past medical history significant for generalized anxiety disorder, major depressive disorder. Class 1 obesity: She expresses concerns about weight management, menopausal symptoms, and her hormone levels. She reports feeling tired consistently and has noted an increased appetite. The patient acknowledges anxiety-related eating but admits to a lack of willpower to curb this behavior. She has recently gained weight since fall 2021, despite efforts to lose it. Concerns about hormonal imbalances were discussed, and the patient mentioned feeling fatigued, which she attributes to menopause. Generalized anxiety disorder: Continues with the use of clonazepam on a p.r.n. basis, also using fluoxetine 20 mg. She reports her anxiety and depression have been much better and is interested decreasing her dose of SSRI therapy.. PLAN: Will decrease her fluoxetine to 10 mg daily. .. 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 She has noted no new or worsening joint pain and feels stable since her last follow-up with the open hearth furnace laborer. Mammogram: Mammogram done 08/27/2023, Has upcoming appt repeat mammogram .. RESCUE WORKER: Does see a RESCUE WORKER at [facility] Colonoscopy: Had colonoscopy in 2023 and needed repeat 5-7yrs Vaccine: UTD with COVID vac, Needs Shingles [facility] Medical History (Updated 08/29/24 @ 08:35 by Uday Alvarez PA-C) Screening for diabetes mellitus (DM) Annual physical exam Osteoarthritis of hands, bilateral Colon cancer screening Well woman exam Screening for hypothyroidism Screening for hypercholesterolemia Screening breast examination Perimenopause Bulky or enlarged uterus Well woman exam with routine gynecological exam Excessive bleeding in the premenopausal period Depressed Anxiety Surgical History Hx of dilation and curettage (~2021) History of colonoscopy History of endometrial ablation Hx of tubal ligation Family History Father Hypertension Mother Hypertension Maternal Uncle Colon cancer Social History Housing: House Are you a primary rn critical care to a significant other at home: No Do you presently have visiting nurse or other home services: No Alcohol intake: never Patient Tobacco Use Status: Never used Tobacco Tobacco use type: Cigarette e-Cigarette/Vaping Use: Never Used Second Hand Smoke Exposure: No service: No Current occupational status: employed 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 1. Little interest or pleasure in doing things: several days 2. Feeling down, depressed, or hopeless: several days 3. Trouble falling or staying asleep, or sleeping too much: several days 4. Feeling tired or having little energy: several days 5. Poor appetite or overeating: several days 6. Feeling bad about yourself - or that you are a failure or have let yourself or your family down: several days 7. Trouble concentrating on things, such as reading the newspaper or watching television: several days 8. Moving or speaking so slowly that other people could have noticed. Or the opposite - being so fidgety or restless that you have been moving around a lot more than usual: several days 9. Thoughts that you would be better off or of hurting yourself in some way: several days Total score: 9 Depression Screening Interpretation: Positive Depression Screening Follow-up: Existing condition and Community Mental Health Worker F/U Depression Screening Done: Yes 67500 - PHQ-9 Billing: Yes Source: Developed by Drs. Dima Pickens, Sammi Huang, Harley Wall and colleagues, with an educational fartun from [employer]. Thrive Questionnaire Date Thrive assessed: 08/22/24 I am a: Patient What is your living situation today?: I have a steady place to live Within the past 12 months, did the food you bought not last and you didn't have the money to get more?: Never true Within the past 12 months, did you worry whether your food would run out before you got money to buy more?: Never true Do you have trouble paying for medicines?: No Do you have trouble getting transportation to medical appointments?: No Do you have trouble paying your heating and electricity bill?: No Do you have trouble taking care of your child, family member or friend?: No Do you have trouble with day-to-day activities such as bathing, preparing meals, shopping, managing finances, etc.?: No Are you currently unemployed and looking for a job?: No Are you interested in more education?: No Please select the resources that you would like help with: None Currently or been in a relationship where the following occur: No concerns reported THRIVE Score: 0 AUDIT C Alcohol Use Questionnaire (AUDIT-C) 1. How often do you have a drink containing alcohol?: Never 3. How often do you have six or more drinks on one occasion?: Never Total Score: 0 BIRGIT-7 AMB Questionnaire BIRGIT-7 Date BIRGIT - 7 assessed: 08/29/24 Feeling nervous, anxious, or on edge: 1 = Several days Not being able to stop or control worryin = Several days Worrying too much about different things: 1 = Several days Trouble relaxin = Several days Being so restless that it is hard to sit still: 0 = Not at all Becoming easily annoyed or irritable: 1 = Several days Feeling afraid as if something awful might happen: 1 = Several days Total BIRGIT-7 score (0-4 normal; 5-9 mild; 10-14 moderate; 15-21 severe): 6 Source: Developed by Drs. Dima Pickens, Sammi Huang, Harley Wall and colleagues, with an educational fartun from [employer] BIRGIT-7 Assessment Billing BIRGIT-7 Assessment Tool: BIRGIT-7 Assessment 02595 Review of Systems Const Denies body aches, Denies chills, Denies excessive sweating, Reports fatigue, Denies fever(s) and Denies headache(s) Eyes Denies blurry vision ENT Denies dysphagia, Denies vertigo, Denies dizziness, Denies headache(s), Denies hearing loss and Denies tinnitus Card Denies chest pain, Denies chest pain with activity, Denies syncope, Denies irregular heart rhythm and Denies dyspnea Resp Denies chest congestion, Denies cough, Denies hemoptysis, Denies dyspnea and Denies wheezing GI Denies abdominal pain, Denies melena, Denies hematochezia, Denies coffee ground emesis, Denies dysphagia, Denies diarrhea, Denies nausea and Denies vomiting Denies urinary frequency, Denies dysuria, Denies urinary hesitancy and Denies urinary urgency Musc Denies arthralgias, Denies limited range of motion, Denies muscle cramps and Denies muscle weakness Skin/Breast Denies rash and Denies skin ulcer Neuro Denies Abnormal speech present, Denies confusion, Denies vertigo, Denies dizziness, Denies syncope, Denies headache(s), Denies memory loss and Denies seizure-like activity Psych Denies anxiety, Denies confusion, Denies depression, Denies memory loss, Denies panic attacks and Denies paranoia Endo Denies excessive sweating, Reports fatigue, Denies flushing, Denies polydipsia and Denies polyuria Aller/Immun Denies wheezing Physical exam (Primary Care) Vital Signs: Last Vital Signs Pulse 69 08/29/24 07:58 BP 122/78 08/29/24 07:58 Pulse Ox 96 08/29/24 07:58 Oxygen Delivery Method Room Air 08/29/24 07:58 BMI result Body Mass Index 30.0 BMI Assessment/Plan discussion: High BMI High, discussed plan: lifestyle, weight reduction, dietary and physical activity Tobacco/Smoking Status: Tobacco use Status Tobacco use date assessed 08/29/24 08/29/24 07:59 Patient Tobacco Use Status Never used Tobacco 08/29/24 07:59 Tobacco use type Cigarette 08/29/24 07:59 e-Cigarette/Vaping Use Never Used 08/29/24 07:59 PHQ-9: PHQ-9 Score PHQ-9: Total score 9 08/29/24 08:03 Depression Screening Interpretation: Positive Depression Screening Follow-up: Existing condition and Community Mental Health Worker F/U Thrive Assessment: Date of Thrive Assessment Date Thrive assessed 08/22/24 08/29/24 07:59 Currently or been in a relationship where the following occur: No concerns reported Const General: cooperative, comfortable, no acute distress, alert and awake; No confusion Orientation/consciousness: oriented to person, oriented to place, patient oriented x3 and No confusion HENMT Head: Yes normocephalic Ears: external ears normal and TM's normal bilaterally Face and sinus: No sinus tenderness Mouth: Normal oral and palatal mucosa present and tongue normal Teeth and gingiva: dentition normal and gingiva normal Throat: Yes posterior oropharynx normal, Yes tonsils normal and Yes uvula midline Eyes Conjunctivae: conjunctivae normal Sclerae: sclerae normal Pupils: Equal, round and reactive pupils present EOM: EOMs intact bilaterally Direct Ophthalmoscopy: No no photophobia Neck Neck: Yes no lymphadenopathy, No tender and Yes no JVD Thyroid: Thyroid normal Carotids: no bruits Chest Chest palpation & inspection: no tenderness Resp Effort & Inspection: normal respiratory effort, no audible wheezes, not labored and no stridor Auscultation: no crackles, no rales, no rhonchi and no wheezes Cardio Jugular venous distension: no JVD Rate: regular rate, not bradycardic and not tachycardic Rhythm: regular rhythm Bruits: no carotid bruits Peripheral pulses: Peripheral pulses 2+ throughout GI Inspection: Yes normal to inspection, No abdominal wall ecchymosis and No visible herniation Palpation (GI): Soft to palpation, nontender, no guarding, not rigid and No hepatosplenomegaly present Auscultation: normoactive bowel sounds General: Yes no CVA tenderness Back/Spine/Pelvis Back: no CVA tenderness and No back tenderness Cervical Spine: cervical ROM normal Thoracic/Lumbar Spine: thoracic and lumbar spine normal to inspection, straight leg raise negative bilaterally, No thoraco-lumbar ROM limited and No lumbar spinal tenderness Skin Lesions: no lesions Rashes: no rashes Wounds: no wounds Neuro General: oriented to person, oriented to place, patient oriented x3, CN's II-XI intact bilaterally and No confusion Cranial nerves: Yes Equal, round and reactive pupils present and Yes Normal accommodation reflex present Cognition (Neuro): normal cognition Speech: No Abnormal speech present Gait exam (Neuro): Normal gait present Motor exam (neuro): 5/5 motor strength present throughout Extrem Right upper extremity: full ROM; no cyanosis Left upper extremity: full ROM; no cyanosis Right lower extremity: no edema Left lower extremity: no edema Psych Appearance: grossly normal Mental Status: mental status grossly normal Affect: normal affect Attitude: cooperative Thought process: Normal thought process present Coding Level of Care Code Est Pt Prev Care 40-64y(67318) Diagnoses Annual physical exam Z00.00 Positive KELLY (antinuclear antibody) R76.8 Class 1 obesity E66.811 MDD (major depressive disorder), recurrent episode, moderate F33.1 Chronic fatigue R53.82 Screening for diabetes mellitus (DM) Z13.1 Additional Codes BIRGIT-7 Assessment Billing - BIRGIT-7 Assessment Tool: BIRGIT-7 Assessment 45873 ([id number]) PHQ-9 - 41222 - PHQ-9 Billing: Yes ([id number]) Assessment & Plan Assessment & Plan (1) Annual physical exam: Code(s): Z00.00 - Encounter for general adult medical examination without abnormal findings Category: Medical Plan: As per HPI (2) Positive KELLY (antinuclear antibody): Code(s): R76.8 - Other specified abnormal immunological findings in serum Category: Medical Plan: Patient's bilateral hand pain and positive KELLY. Has followed up with Rheumatology who moved out rheumatoid arthritis. She was diagnosed with osteoarthritis and does use a cream from time to time for hand and wrist pain. 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 We did discuss perhaps starting a GLP 1. She would like to do hormone testing as she feels like her hormones are affecting her weight. (4) MDD (major depressive disorder), recurrent episode, moderate: Code(s): F33.1 - Major depressive disorder, recurrent, moderate Category: Medical Plan: Patient is interested in mental health therapy. We did discuss reducing her SSRI dose. Current antidepressant therapy will be continued with a consideration to reduce dosage and monitor impact on anxiety and depressive states. Mental health therapy options are being explored with updated insurance coverage. (5) Chronic fatigue: Code(s): R53.82 - Chronic fatigue, unspecified Category: Medical Plan: As per [facility] patient reporting chronic fatigue. Unclear if this is due to her mental health versus an obstructive sleep apnea versus side effect of mental health medications. Will reduce her fluoxetine dose to 10 mg daily. (6) Screening for diabetes mellitus (DM): Code(s): Z13.1 - Encounter for screening for diabetes mellitus Category: Medical Plan: As per [facility] Orders: Orders Vitamin D 25-OH Total Today D50.0 - Iron deficiency anemia secondary to blood loss (chronic) Hemoglobin A1c Today E66.811 - Obesity, class 1 Complete Blood Count no Diff Today D50.0 - Iron deficiency anemia secondary to blood loss (chronic) IRON PROFILE Today D50.0 - Iron deficiency anemia secondary to blood loss (chronic), D50.9 - Iron deficiency anemia, unspecified Vitamin B12 and Folate Today D50.0 - Iron deficiency anemia secondary to blood loss (chronic), E53.8 - Deficiency of other specified B group vitamins TSH reflex Free T4 Today R53.82 - Chronic fatigue, unspecified Comprehensive [place]. Panel Fast Today Z13.1 - Encounter for screening for diabetes mellitus Referrals Counseling Referral F33.1 - Major depressive disorder, recurrent, moderate Medications: New fluoxetine 10 mg PO DAILY 30 days 30 caps 3RF F33.1 - Major depressive disorder, recurrent, moderate On Hold fluoxetine Hold Comment: Doctor's Order 20 mg PO DAILY 90 days 90 caps 2RF F41.1 - Generalized anxiety disorder
== END 2024-08-29 08:33 | disposition home or self-care (01) ==
LOC: HO.HMCH 07:51
PROVIDERS: PCP Physician Assistant; Visit Provider Physician Assistant
DX: Z00.00 Encounter for general adult medical examination without abnormal findings (principal); F33.1 Major depressive disorder, recurrent, moderate; E66.811 Obesity, class 1; Z68.30 Body mass index [BMI] 30.0-30.9, adult; R76.8 Other specified abnormal immunological findings in serum; R53.82 Chronic fatigue, unspecified; Z13.1 Encounter for screening for diabetes mellitus

== ENCOUNTER → 2024-08-29 07:51 | Outpatient (BNVA) | payer BC, SELFPAY | PROVIDERS: PCP Physician Assistant; Visit Provider Physician Assistant | DX: Z00.00 Encounter for general adult medical examination without abnormal findings (principal); R76.8 Other specified abnormal immunological findings in serum; E66.811 Obesity, class 1; Z68.30 Body mass index [BMI] 30.0-30.9, adult; F33.1 Major depressive disorder, recurrent, moderate; R53.82 Chronic fatigue, unspecified; F41.1 Generalized anxiety disorder; Z79.899 Other long term (current) drug therapy | CPT/HCPCS: 96127 ==

== ENCOUNTER 2024-09-24 07:48 | Outpatient (REF) | payer BC, SELFPAY ==
[2024-09-24 08:22] LABS: Hematocrit 38.8 % (37.0-47.0); Hemoglobin 12.8 g/dl (12.0-16.0); Mean Corpuscular Hemoglobin 30.3 pg (27.0-33.0); Mean Corpuscular Volume 91.9 fL (80.0-98.0); Mean Platelet Volume 10.1 fL (9.4-12.3); Platelet Count 262 X10*3/uL (160-400); Red Blood Count 4.22 X10*6/uL (4.20-5.50); Red Cell Distribution Width 13.2 % (11.0-16.0); White Blood Count 3.7 X10*3/uL (4.8-10.8)
[2024-09-24 08:40] LABS: Estimated Average Glucose 103 mg/dL; Hemoglobin A1c % 5.2 % (<6.0)
[2024-09-24 09:11] LABS: Alanine Aminotransferase 13 U/L (0-31); Albumin Level 4.1 g/dL (3.5-5.0); Alkaline Phosphatase 105 U/L (39-117); Anion Gap 11 (12-20); Aspartate Amino Transferase 19 U/L (5-31); Bilirubin Total 0.9 mg/dL (0.0-1.0); Blood Urea Nitrogen 10 mg/dL (9-16); Calcium 9.5 mg/dL (8.4-10.2); Carbon Dioxide 27 mmol/L (22-29); Chloride 108 mmol/L (96-108); Estimated Glomerular Filt Rate > 60; Glucose Fasting 91 mg/dL (60-99); Iron 107 mcg/dL (30-160); Percent Iron Saturation 34 % (15-50); Potassium 4.4 mmol/L (3.3-5.1); Sodium 142 mmol/L (135-145); Total Iron Binding Capacity 311 mcg/dL (228-428); Unsaturated Iron Binding 204 ug/dL
[2024-09-24 09:27] LABS: TSH reflex Free T4 1.06 uIU/mL (0.32-4.0)
[2024-09-24 09:32] LABS: Folate 12.3 ng/mL (> or = 4.0); Vitamin B12 358 pg/mL (200-900)
== END 2024-09-24 07:49 | disposition home or self-care (01) ==
LOC: HO.LAB 07:48
PROVIDERS: PCP Physician Assistant; Visit Provider Physician Assistant
DX: E53.8 Deficiency of other specified B group vitamins (principal); D50.0 Iron deficiency anemia secondary to blood loss (chronic); R53.82 Chronic fatigue, unspecified; E66.811 Obesity, class 1; Z13.1 Encounter for screening for diabetes mellitus
CPT/HCPCS: 36415; 80053; 82306; 82607; 82746; 83036; 83540; 84443; 85027

== ENCOUNTER 2024-09-30 14:52 | Outpatient (REF) | payer BC, SELFPAY | END 2024-09-30 14:53 | disposition home or self-care (01) | LOC: HO.MAMMO 14:52 | PROVIDERS: PCP Physician Assistant; Visit Provider Physician Assistant | DX: Z12.31 Encounter for screening mammogram for malignant neoplasm of breast (principal) | CPT/HCPCS: 77063; 77067 ==

== ENCOUNTER → 2024-09-30 15:15 | Outpatient (BNV) | payer BC, SELFPAY | PROVIDERS: PCP Physician Assistant; Visit Provider Internal Medicine | DX: Z12.31 Encounter for screening mammogram for malignant neoplasm of breast (principal) | CPT/HCPCS: 77063; 77067 ==

== ENCOUNTER 2024-12-29 11:25 | Outpatient (REF) | payer BC, SELFPAY ==
--- NOTE | ~2024-12-29 | US_ITS ---
EXAMINATION: US PELVIS CLINICAL INFORMATION: Leiomyomata, uterus. COMPARISON: December 04, 2023 TECHNIQUE: Ultrasound of the pelvis is performed using both transabdominal and transvaginal transducers along with Doppler. Transvaginal imaging is performed due to inadequate visualization transabdominally. FINDINGS: Uterus: The uterus is anteverted and measures 7 x 4 x 5 cm. Volume: 56 cc. The double wall endometrial thickness is 3 mm. Trace of fluid in the uterine cavity. Heterogeneous parenchyma. There is a 1.9 cm intramural heterogeneous mixed echotexture lesion in the right side of body. There is a 1.7 cm heterogeneous mixed echotexture lesion on the left upper body. There is a 1.1 cm heterogeneous mixed echotexture lesion in the lower left body. Adnexa: The ovaries are identified with flow on color Doppler interrogation.. No free fluid in the cul-de-sac. Right ovary measures 1 x 1 x 2 cm. Volume: 1.1 cc. No solid or cystic lesion detected. Left ovary measures 2 x 1 x 2 cm. Volume: 1.3 cc. No solid or cystic lesion. US/US pelvic and transvaginal IMPRESSION: Leiomyomata uterine, largest 1.9 cm. Trace of free fluid in the uterine cavity of uncertain etiology. Endometrial stripe: 3 mm, normal. No ovarian torsion. Electronically signed by: Pro Knight MD 12/29/2024 02:23 PM EDT
== END 2024-12-29 11:26 | disposition home or self-care (01) ==
LOC: HO.US 11:25
PROVIDERS: PCP Physician Assistant; Visit Provider Obstetrics & Gynecology
DX: D25.9 Leiomyoma of uterus, unspecified (principal)
CPT/HCPCS: 76830; 76856

== ENCOUNTER → 2024-12-29 11:33 | Outpatient (BNV) | payer BC, SELFPAY | PROVIDERS: PCP Physician Assistant; Visit Provider Radiology Diagnostic Radiology | DX: D25.1 Intramural leiomyoma of uterus (principal) | CPT/HCPCS: 76830; 76856 ==

== ENCOUNTER 2025-01-24 07:43 | Outpatient (AMB) | payer BC, SELFPAY ==
[2025-01-24 07:56] VITALS: BP 118/74; BMI 24.7
--- NOTE | 2025-01-24 07:56 | A.OFFVIS_ITS ---
Vital Signs 01/24/25 07:56 Height 5 ft 6 in Weight 153 lb BMI 24.7 BP 118/74 Intake Visit Reasons: Annual/US follow up Assistant Construction Superintendent Required: No Information Interpreted: non-clinical & clinical Highway Truck Driver: Highway Truck Driver Present (Keiko Davis CARLOS) Accompanied by: Self / Same As Patient Allergies No Known Allergies (No Known Allergies*) Allergy (Verified 01/24/25 08:02) Post menopausal: Yes HPI Comments Details: Presenting for annual exam. No complaints. Last Pap/HPV was negative in 05/18 Last Mammogram was BI-RADS 1 in 10/19 Last Colonoscopy was [facility] 04/[facility] Medical History Screening for diabetes mellitus (DM) Annual physical exam Osteoarthritis of hands, bilateral Colon cancer screening Well woman exam Screening for hypothyroidism Screening for hypercholesterolemia Screening breast examination Perimenopause Bulky or enlarged uterus Well woman exam with routine gynecological exam Excessive bleeding in the premenopausal period Depressed Anxiety Surgical History Hx of dilation and curettage (~2021) History of colonoscopy History of endometrial ablation Hx of tubal ligation Family History Father Hypertension Mother Hypertension Maternal Uncle Colon cancer Social History Housing: House Are you a primary resident care director to a significant other at home: No Do you presently have visiting nurse or other home services: No Alcohol intake: never Patient Tobacco Use Status: Never used Tobacco Tobacco use type: Cigarette e-Cigarette/Vaping Use: Never Used Second Hand Smoke Exposure: No service: No Current occupational status: employed 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 Current occupational exposures/hazards: No Gender identity: Female Cognitive needs: No Hearing needs: No Vision needs: Yes Female Reproductive History Menstrual Age of Menarche: 12 control method: permanent sterilization Date of last pap smear: 05/22/21 Date of Mammogram: 09/30/24 Review of Systems Const All systems reviewed & are unremarkable except as noted in HPI and below Card Reports as per HPI Resp Reports as per HPI GI Reports as per HPI and Reports no additional complaints Reports as per HPI Physical Exam Vital Signs: Last Vital Signs BP 118/74 01/24/25 07:56 BMI result Body Mass Index 24.7 Const General: cooperative, healthy appearing and comfortable Chest Chest palpation & inspection: normal inspection of the chest and normal palpation of entire chest wall Breast/axilla inspection: normal inspection of the breasts and normal inspection of the axillae Breast/axilla palpation: normal palpation of the breasts, normal palpation of the axillae and no axillary lymphadenopathy Resp Effort & Inspection: normal respiratory effort Auscultation: clear to auscultation bilaterally Percussion: percussion normal Cardio Palpation: normal PMI Rate: regular rate Rhythm: regular rhythm Heart sounds: no murmurs and no rubs Peripheral pulses: Peripheral pulses 2+ throughout GI Inspection: Yes normal to inspection Palpation (GI): Soft to palpation, nontender, no guarding, not rigid and No hepatosplenomegaly present Percussion: Yes normal to percussion Auscultation: normal bowel sounds Rectal Exam - Female: deferred General: Yes bladder normal to palpation External Female Exam: No lesion Speculum Exam - Vagina: normal appearance of the vagina, normal palpation, normal vaginal discharge and not erythematous Speculum Exam - Cervix: normal appearance of the cervix and normal palpation Bimanual exam- vagina & uterus: normal bimanual exam, normal palpation, uterine size normal, bladder normal to palpation, consistency normal and normal palpation Bimanual Exam- Adnexa, other: normal adnexae, no masses and no tenderness Assessment & Plan Assessment & Plan (1) Well woman exam: Code(s): Z01.419 - Encounter for gynecological examination (general) (routine) without abnormal findings Category: Medical Plan: Co testing not indicated this year. Counseled the patient about the recommended dietary allowance of 1200 mg of Calcium & 600 IU of vitamin D. Instructions given to patient to schedule next screening Mammogram in 10/20. The patient was instructed to perform monthly self-breast exams and schedule annual exam in a year. All questions answered and the patient verbalized understanding. Coding Level of Care Code Est Pt Prev Care 40-64y(31388) Diagnoses Well woman exam Z01.419
== END 2025-01-24 08:26 | disposition home or self-care (01) ==
LOC: HO.HWS 07:43
PROVIDERS: PCP Physician Assistant; Visit Provider Obstetrics & Gynecology
DX: Z01.419 Encounter for gynecological examination (general) (routine) without abnormal findings (principal)
CPT/HCPCS: 99396; 99459